=== PATIENT | male | born 1960 | race Caucasian/White ===

== ENCOUNTER 2018-08-24 03:59 | Emergency (ER) | payer MEDICAID ==
[~2018-08-24] VITALS: Ht 182.9 cm; Wt 147.7 kg
[~2018-08-24 03:59] MED LIST: AMLO5TAB PO; HYDR12.522 PO; LISI-222 PO
[2018-08-24] MEDS ORDERED: ondansetron/PF 4mg/2ml inj IV ONE (04:20)
[2018-08-24] MEDS ORDERED: morphine 4 MG/ML inj SYRINge IV ONE ×2 (04:25→05:05)
[2018-08-24 05:07] LABS: BASOPHILS # (AUTO) 0.1 X10'3 (0-0.2); BASOPHILS % (AUTO) 0.6 % (0-1); EOSINOPHILS # (AUTO) 0.2 X10'3 (0-0.9); EOSINOPHILS % (AUTO) 1.9 % (0-6); HEMATOCRIT 41.3 % (42.0-52.0); HEMOGLOBIN 14.3 g/dl (14.0-17.9); LYMPHOCYTES # (AUTO) 1.8 X10'3 (1.1-4.8); LYMPHOCYTES % (AUTO) 16.9 % (21-51); MEAN CORPUSCULAR HEMOGLOBIN 28.9 PG (27.0-31.0); MEAN CORPUSCULAR HGB CONC 34.7 g/dL (33.0-36.5); MEAN CORPUSCULAR VOLUME 83.4 FL (78-98); MEAN PLATELET VOLUME 7.8 FL (7.4-10.4); MONOCYTES # (AUTO) 0.5 X10'3 (0-0.9); MONOCYTES % (AUTO) 4.7 % (2-12); NEUTROPHILS % (AUTO) 75.9 % (42-75); PLATELET COUNT 247 X10'3 (140-440); RED BLOOD COUNT 4.96 X10'6 (4.70-6.10); RED CELL DISTRIBUTION WIDTH 14.5 % (11.5-14.5); WHITE BLOOD COUNT 10.6 X10'3 (4.5-11.0)
[2018-08-24] MEDS ORDERED: labetalol 20mg/4ml (5mg/ml) syringe IV ONE (05:10)
[2018-08-24 05:20] LABS: ALANINE AMINOTRANSFERASE 41 U/L (12-78); ALBUMIN 3.3 G/DL (3.4-5.0); ALBUMIN/GLOBULIN RATIO 0.8 (1.1-1.5); ALKALINE PHOSPHATASE 144 IU/L (46-116); ANION GAP 11 (8-16); ASPARTATE AMINO TRANSFERASE 27 U/L (10-37); BILIRUBIN,TOTAL 0.4 MG/DL (0.1-1.0); BLOOD UREA NITROGEN 20 MG/DL (7-18); BUN/CREATININE RATIO 14.6 (5.4-32.0); CALCIUM 8.8 MG/DL (8.5-10.1); CHLORIDE 104 MMOL/L (99-107); CREATININE 1.37 MG/DL (0.60-1.10); GLUCOSE 136 MG/DL (70-104); POTASSIUM 4.1 MMOL/L (3.5-5.1); SODIUM 141 MMOL/L (135-145); TOTAL CARBON DIOXIDE 26.2 MMOL/L (24-32); TOTAL PROTEIN 7.4 G/DL (6.4-8.2); eGFR 54 ML/MIN
[2018-08-24 05:24] LABS: LIPASE 141 U/L (73-393); TROPONIN I < 0.04 NG/ML (0.0-0.05)
--- NOTE | 2018-08-24 06:58 | NUR ---
ASSSUMED PT CARE, PT HYPERTENSIVE MD AWARE ACCORDING TO NIGHT ZHENG PINEDA. PT SNORING FOR NOW WILL TRY TO OBTAIN URINE SAMPLE
[2018-08-24 07:19] LABS: CLARITY,URINE CLEAR (Clear); COLOR,URINE YELLOW (Yellow); GLUCOSE, URINE NEGATIVE (Neg); KETONES,URINE NEGATIVE (Neg); LEUKOCYTE ESTERASE ,URINE NEGATIVE (Neg); NITRITES, URINE NEGATIVE (Neg); OCCULT BLOOD,URINE TRACE-INTACT (Neg); PH,URINE 6.5 (4.8-8.0); PROTEIN,URINE NEGATIVE (Neg); UROBILINOGEN,URINE 0.2 E.U/dL (0.2-1.0)
[2018-08-24] MEDS ORDERED: ONDA4TAB6 PO (07:19)
[2018-08-24] MEDS ORDERED: HYDR-4353 PO (07:21)
[2018-08-24] MEDS ORDERED: ondansetron 4mg rapidly disintigrating tab PO ONE (07:25)
[2018-08-24] MEDS ORDERED: HYDROcodone/acetaminophen 10/325mg tab PO ONE (07:25)
[2018-08-24 07:31] LABS: UA COLLECTION TYPE CLN CATCH MIDSTREAM
[2018-08-24 07:34] LABS: BACTERIA,URINE NONE SEEN /HPF (Neg); RBC,URINE 0-2 /HPF (0-2); SQUAMOUS EPITHELIAL CELL,UR FEW /LPF (FEW); WBC,URINE 0-4 /HPF (0-4)
[2018-08-24 07:41] VITALS: BP 206/112
== END 2018-08-24 09:07 | disposition home or self-care (01) ==
LOC: ER 03:59
DX: S30.1XXA Contusion of abdominal wall, initial encounter (principal); S36.62XA Contusion of rectum, initial encounter; G43.909 Migraine, unspecified, not intractable, without status migrainosus; I10 Essential (primary) hypertension; J44.9 Chronic obstructive pulmonary disease, unspecified; M19.90 Unspecified osteoarthritis, unspecified site; F12.90 Cannabis use, unspecified, uncomplicated; F15.90 Other stimulant use, unspecified, uncomplicated; Z56.0 Unemployment, unspecified; Z88.6 Allergy status to analgesic agent; Z88.1 Allergy status to other antibiotic agents; Z91.018 Allergy to other foods; X58.XXXA Exposure to other specified factors, initial encounter; Y93.89 Activity, other specified; Y92.89 Other specified places as the place of occurrence of the external cause; Y99.8 Other external cause status
CPT/HCPCS: 36415; 71045; 74176; 80053; 81001; 83605; 83690; 84484; 85025; 93005; 96374; 96375; 96376; 99284; J2270; J2405; J3490

== ENCOUNTER 2019-01-25 10:39 | Emergency (ER) | payer MEDICAID ==
[~2019-01-25] VITALS: Ht 185.4 cm; Wt 140.0 kg
[~2019-01-25 10:39] MED LIST changes: +ONDA4TAB6 PO
[2019-01-25] MEDS ORDERED: morphine 10mg/ml inj. IV ONE (12:15)
--- NOTE | 2019-01-25 12:45 | NUR ---
Pt refused knee immobilizer
[2019-01-25 13:14] LABS: ALANINE AMINOTRANSFERASE 32 U/L (12-78); ALBUMIN 3.2 G/DL (3.4-5.0); ALBUMIN/GLOBULIN RATIO 0.7 (1.1-1.5); ALKALINE PHOSPHATASE 150 IU/L (46-116); ANION GAP 7 (8-16); ASPARTATE AMINO TRANSFERASE 25 U/L (10-37); BILIRUBIN,TOTAL 0.7 MG/DL (0.1-1.0); BLOOD UREA NITROGEN 17 MG/DL (7-18); CALCIUM 9.2 MG/DL (8.5-10.1); CHLORIDE 103 MMOL/L (99-107); CREATININE 1.13 MG/DL (0.60-1.10); GLUCOSE 115 MG/DL (70-104); POTASSIUM 3.9 MMOL/L (3.5-5.1); SODIUM 137 MMOL/L (135-145); TOTAL CARBON DIOXIDE 26.8 MMOL/L (24-32); TOTAL PROTEIN 7.6 G/DL (6.4-8.2); eGFR 67 ML/MIN
--- NOTE | 2019-01-25 13:15 | NUR ---
Uma sommer in ED - 01/25/19 at 1316 by EVANGELIST attempted to GIVE PAIN MED , IV SITE TO RIGHT WRIST NOT PATENT. D/C INTACT
--- NOTE | 2019-01-25 13:17 | NUR ---
ATTEMPTED to GIVE PAIN MED , IV SITE TO RIGHT WRIST NOT PATENT. D/C INTACT. PT TOLERATED WELL. WILL RESTART
[2019-01-25 13:28] LABS: BASOPHILS # (AUTO) 0.1 X10'3 (0-0.2); BASOPHILS % (AUTO) 0.5 % (0-1); EOSINOPHILS % (AUTO) 0.2 % (0-6); HEMATOCRIT 42.4 % (42.0-52.0); HEMOGLOBIN 14.2 g/dl (14.0-17.9); LYMPHOCYTES # (AUTO) 1.2 X10'3 (1.1-4.8); LYMPHOCYTES % (AUTO) 8.9 % (21-51); MEAN CORPUSCULAR HEMOGLOBIN 27.9 PG (27.0-31.0); MEAN CORPUSCULAR HGB CONC 33.4 g/dL (33.0-36.5); MEAN CORPUSCULAR VOLUME 83.4 FL (78-98); MEAN PLATELET VOLUME 7.2 FL (7.4-10.4); MONOCYTES # (AUTO) 0.8 X10'3 (0-0.9); MONOCYTES % (AUTO) 5.9 % (2-12); NEUTROPHILS # (AUTO) 11.1 X10'3 (1.8-7.7); NEUTROPHILS % (AUTO) 84.5 % (42-75); PLATELET COUNT 222 X10'3 (140-440); RED BLOOD COUNT 5.08 X10'6 (4.70-6.10); RED CELL DISTRIBUTION WIDTH 15.3 % (11.5-14.5); WHITE BLOOD COUNT 13.2 X10'3 (4.5-11.0)
[2019-01-25] MEDS ORDERED: HYDR-3965 PO (14:34)
[2019-01-25 14:45] VITALS: BP 185/110
== END 2019-01-25 14:50 | disposition home or self-care (01) ==
LOC: ER 10:39
DX: M25.562 Pain in left knee (principal); G43.909 Migraine, unspecified, not intractable, without status migrainosus; I10 Essential (primary) hypertension; J44.9 Chronic obstructive pulmonary disease, unspecified; M19.90 Unspecified osteoarthritis, unspecified site; F12.90 Cannabis use, unspecified, uncomplicated; F15.90 Other stimulant use, unspecified, uncomplicated; Z88.1 Allergy status to other antibiotic agents; Z88.6 Allergy status to analgesic agent; Z79.899 Other long term (current) drug therapy; Z87.19 Personal history of other diseases of the digestive system; Z90.49 Acquired absence of other specified parts of digestive tract; Z96.652 Presence of left artificial knee joint; Z91.018 Allergy to other foods; Z98.890 Other specified postprocedural states; Z56.0 Unemployment, unspecified; W18.39XA Other fall on same level, initial encounter; Y93.89 Activity, other specified; Y92.89 Other specified places as the place of occurrence of the external cause; Y99.8 Other external cause status
CPT/HCPCS: 36415; 73564; 80053; 85025; 85651; 96374; 99284; J2270

== ENCOUNTER 2019-03-16 12:11 | Inpatient (IN) | payer MEDICAID ==
[~2019-03-16] VITALS: Ht 182.9 cm; Wt 136.8 kg
[2019-03-16] MEDS ORDERED: ketorolac trometh. 30mg/ml inj. IV ONE (12:50)
[2019-03-16] MEDS ORDERED: morphine 4 MG/ML inj SYRINge IV ONE (12:50)
[2019-03-16] MEDS ORDERED: normal saline 1000ML IV soln IV ONE (12:50)
[2019-03-16] MEDS ORDERED: proCHLORperazine 10 MG/2 ml inj IV ONE (12:50)
[2019-03-16] MEDS ORDERED: vancomycin/NS 1 GM ADD-VANTAGE 250 ML IV ONE (12:50)
[2019-03-16 12:55] LABS: BASOPHILS # (AUTO) 0.1 X10'3 (0-0.2); BASOPHILS % (AUTO) 0.4 % (0-1); EOSINOPHILS % (AUTO) 0 % (0-6); HEMATOCRIT 42.4 % (42.0-52.0); HEMOGLOBIN 14.5 g/dl (14.0-17.9); LYMPHOCYTES # (AUTO) 1.8 X10'3 (1.1-4.8); LYMPHOCYTES % (AUTO) 6.7 % (21-51); MEAN CORPUSCULAR HEMOGLOBIN 28.5 PG (27.0-31.0); MEAN CORPUSCULAR HGB CONC 34.1 g/dL (33.0-36.5); MEAN CORPUSCULAR VOLUME 83.6 FL (78-98); MEAN PLATELET VOLUME 7.7 FL (7.4-10.4); MONOCYTES # (AUTO) 1.1 X10'3 (0-0.9); MONOCYTES % (AUTO) 4.3 % (2-12); NEUTROPHILS # (AUTO) 23.3 X10'3 (1.8-7.7); NEUTROPHILS % (AUTO) 88.6 % (42-75); PLATELET COUNT 217 X10'3 (140-440); RED BLOOD COUNT 5.07 X10'6 (4.70-6.10); RED CELL DISTRIBUTION WIDTH 15.3 % (11.5-14.5)
[2019-03-16 12:57] LABS: WHITE BLOOD COUNT 26.3 X10'3 (4.5-11.0)
[2019-03-16 13:10] LABS: ALANINE AMINOTRANSFERASE 27 U/L (12-78); ALBUMIN 3.1 G/DL (3.4-5.0); ALBUMIN/GLOBULIN RATIO 0.7 (1.1-1.5); ALKALINE PHOSPHATASE 115 IU/L (46-116); ANION GAP 12 (8-16); ASPARTATE AMINO TRANSFERASE 18 U/L (10-37); BILIRUBIN,TOTAL 1.1 MG/DL (0.1-1.0); BLOOD UREA NITROGEN 19 MG/DL (7-18); BUN/CREATININE RATIO 11.7 (5.4-32.0); CALCIUM 8.5 MG/DL (8.5-10.1); CHLORIDE 101 MMOL/L (99-107); CREATININE 1.62 MG/DL (0.60-1.10); ETHANOL < 0.010 GM/DL (0.0-0.010); GLUCOSE 173 MG/DL (70-104); MAGNESIUM 1.4 MG/DL (1.5-2.4); POTASSIUM 3.6 MMOL/L (3.5-5.1); SODIUM 135 MMOL/L (135-145); TOTAL CARBON DIOXIDE 22.1 MMOL/L (24-32); TOTAL PROTEIN 7.5 G/DL (6.4-8.2); eGFR 44 ML/MIN
[2019-03-16 13:21] LABS: PLATELET ESTIMATE NORMAL; TOTAL CELLS COUNTED 100
[2019-03-16 13:36] LABS: PARTIAL THROMBOPLASTIN TIME 32 SECONDS (22-32)
[2019-03-16] MEDS ORDERED: magnesium 2GM in 50ml NS 50 ML IV ONE (13:55)
[2019-03-16 14:05] LABS: CREATINE KINASE 74 U/L (39-308)
[2019-03-16] MEDS ORDERED: LOSA25TA41 PO (14:38)
[2019-03-16] MEDS ORDERED: LISI-600 PO (14:38)
[2019-03-16] MEDS ORDERED: METF-438 PO (14:38)
[2019-03-16] MEDS ORDERED: GABA-532 PO (14:38)
[2019-03-16] MEDS ORDERED: FURO-150 PO (14:39)
[2019-03-16] MEDS ORDERED: POTA8CAP20 PO (14:39)
[2019-03-16] MEDS ORDERED: cefepime 1GM/NS ADD-VANTAGE 100 ML IV ONE (14:45)
[2019-03-16] MEDS ORDERED: magnesium hydroxide 30ml (MOM) UD suspension PO PRN (14:50)
[2019-03-16] MEDS ORDERED: magnesium 4gm in 100ml NS 100 ML IV PRN (14:50)
[2019-03-16] MEDS ORDERED: HYDROcodone/acetaminophen 10/325mg tab PO PRN (14:50)
[2019-03-16] MEDS ORDERED: diphenhydrAMINE 25mg capsule PO PRN (14:50)
[2019-03-16] MEDS ORDERED: magnesium 2GM in 50ml NS 50 ML IV PRN (14:50)
[2019-03-16] MEDS ORDERED: acetaminophen 325mg tablet PO PRN (14:50)
[2019-03-16] MEDS ORDERED: ondansetron/PF 4mg/2ml inj IV PRN (14:50)
[2019-03-16] MEDS ORDERED: mag hydrox/Alum hydrox/simeth 30ml oral suspension PO PRN (14:50)
[2019-03-16] MEDS ORDERED: HYDROcodone/acetaminophen 5mg/325mg tablet PO PRN (14:50)
[2019-03-16] MEDS ORDERED: glucagon, human recombinant 1mg kit SUBCUT PRN (14:50)
[2019-03-16] MEDS ORDERED: dextrose 50%-water 50ml dispensing syringe IV PRN ×2 (14:50)
[2019-03-16] MEDS ORDERED: dextrose ORAL solution 15 GM/59 ML bottle PO PRN ×2 (14:50)
[2019-03-16] MEDS ORDERED: acetaminophen 650mg rectal suppository RC PRN (14:50)
[2019-03-16] MEDS ORDERED: MESSAGE TO PHARMACY PO ONE (14:50)
[2019-03-16] MEDS: K and/or MAG REPLACEMENT MC SCH (14:50)
[2019-03-16] MEDS ORDERED: potassium CL 10mEq/100ml bag 100 ML IV PRN ×2 (14:50)
[2019-03-16] MEDS ORDERED: magnesium Cl slow-release 64mg tablet PO PRN (14:50)
[2019-03-16] MEDS ORDERED: potassium Cl 20 mEq SR tablet PO PRN (14:50)
[2019-03-16] MEDS ORDERED: metoclopramide 5 mg/ml inj IV PRN (14:50)
[2019-03-16] MEDS ORDERED: cefepime 1GM in D5W 50mL 50 ML IV ONE (14:55)
[2019-03-16] MEDS ORDERED: cefepime 1GM in D5W 50mL 50 ML IV SCH (14:57)
[2019-03-16] MEDS: cefepime 1GM/NS ADD-VANTAGE 50 ML IV SCH ×2 (15:29→23:33)
[2019-03-16 15:30] LABS: CLARITY,URINE SLIGHTLY CLOUDY (Clear); COLOR,URINE YELLOW (Yellow); GLUCOSE, URINE 500 mg/dl (Neg); KETONES,URINE NEGATIVE (Neg); LEUKOCYTE ESTERASE ,URINE NEGATIVE (Neg); NITRITES, URINE NEGATIVE (Neg); OCCULT BLOOD,URINE SMALL (Neg); PROTEIN,URINE 100 mg/dl (Neg); UROBILINOGEN,URINE 0.2 E.U/dL (0.2-1.0)
[2019-03-16 15:35] LABS: HEMOGLOBIN A1C 6.2 % (4.5-6.2)
[2019-03-16 15:37] LABS: UA COLLECTION TYPE STRAIGHT CATH
[2019-03-16 15:38] LABS: FINE GRANULAR CAST 0-3 /LPF (NEGATIVE); MUCUS STRANDS FEW /LPF (Neg); SQUAMOUS EPITHELIAL CELL,UR FEW /LPF (FEW)
[2019-03-16 15:39] LABS: BACTERIA,URINE 1+ /HPF (Neg); WBC,URINE 0-4 /HPF (0-4)
--- NOTE | 2019-03-16 15:39 | NUR ---
I have received patient report from Wilma CALZADA
[2019-03-16 15:48] LABS: URINE AMPHETAMINE SCREEN POSITIVE (Neg); URINE BARBITUATE SCREEN NEGATIVE (Neg); URINE BENZODIAZEPINES SCREEN NEGATIVE (Neg); URINE CANNABINOID SCREEN POSITIVE (Neg); URINE COCAINE SCREEN NEGATIVE (Neg); URINE METHADONE SCREEN NEGATIVE (Neg); URINE OPIATE SCREEN POSITIVE (Neg); URINE PHENCYCLIDINE SCREEN NEGATIVE (Neg)
[2019-03-16 16:25] VITALS: BP 160/75
[2019-03-16] MEDS: normal saline 1000ml 1,000 ML IV SCH (16:27)
[2019-03-16 18:00] VITALS: BP 170/92
--- NOTE | 2019-03-16 18:15 | NUR ---
Patient in room [facility] 4008. I have received report from ZHENG Gonzales and had the opportunity to ask questions and assume patient care.
--- NOTE | 2019-03-16 18:20 | NUR ---
Patient report given to Tammie CALZADA
--- NOTE | 2019-03-16 18:21 | NUR ---
Dr. Casas aware of BP 170/90
[2019-03-16] MEDS: heparin, porcine 5000 units/ml vial SQ SCH (20:29)
[2019-03-16] MEDS: gabapentin 300mg capsule PO SCH (20:30)
[2019-03-16] MEDS: insulin glargine (Lantus) pen - multi-dose SQ SCH (21:00)
[2019-03-16 22:00] VITALS: BP 182/96
[2019-03-16] MEDS: acetaminophen 325mg tablet PO PRN (23:29)
[2019-03-16] MEDS ORDERED: LORazepam 2 mg/ml vial ONE (23:58)
[2019-03-17] VITALS (8 sets, daily range): BP systolic 130–179; BP diastolic 75–90
[2019-03-17] MEDS: hydrALAZINE 20mg/ml inj. IV PRN ×3 (00:45→18:34)
[2019-03-17] MEDS: normal saline 1000ml 1,000 ML IV SCH ×3 (00:47→15:56)
--- NOTE | 2019-03-17 00:52 | NUR ---
dr. Schultz has been notified regarding pt. elevated BP 182/96.He gave me a order for Hydralazine 10 mg PRN q 4 for BP > 160 and Ativan 1 mg Q4 PRN.We will continue with pt. care.
[2019-03-17] MEDS ORDERED: VANCOMYCIN LEVEL IV ONE (03:30)
--- NOTE | 2019-03-17 06:31 | NUR ---
Problems reprioritized. Patient report given, questions answered & plan of care reviewed with ZHENG Jasmine.
[2019-03-17 07:02] LABS: BASOPHILS # (AUTO) 0.1 X10'3 (0-0.2); BASOPHILS % (AUTO) 0.3 % (0-1); EOSINOPHILS % (AUTO) 0.1 % (0-6); HEMATOCRIT 38.6 % (42.0-52.0); HEMOGLOBIN 12.9 g/dl (14.0-17.9); LYMPHOCYTES # (AUTO) 1.6 X10'3 (1.1-4.8); LYMPHOCYTES % (AUTO) 7.5 % (21-51); MEAN CORPUSCULAR HEMOGLOBIN 28.3 PG (27.0-31.0); MEAN CORPUSCULAR HGB CONC 33.4 g/dL (33.0-36.5); MEAN CORPUSCULAR VOLUME 84.7 FL (78-98); MEAN PLATELET VOLUME 7.8 FL (7.4-10.4); MONOCYTES # (AUTO) 0.9 X10'3 (0-0.9); MONOCYTES % (AUTO) 4.2 % (2-12); NEUTROPHILS # (AUTO) 18.3 X10'3 (1.8-7.7); NEUTROPHILS % (AUTO) 87.9 % (42-75); PLATELET COUNT 174 X10'3 (140-440); RED BLOOD COUNT 4.56 X10'6 (4.70-6.10); RED CELL DISTRIBUTION WIDTH 15.2 % (11.5-14.5); WHITE BLOOD COUNT 20.8 X10'3 (4.5-11.0)
[2019-03-17 07:20] LABS: ALANINE AMINOTRANSFERASE 24 U/L (12-78); ALBUMIN 2.5 G/DL (3.4-5.0); ALBUMIN/GLOBULIN RATIO 0.6 (1.1-1.5); ALKALINE PHOSPHATASE 100 IU/L (46-116); ANION GAP 9 (8-16); ASPARTATE AMINO TRANSFERASE 19 U/L (10-37); BLOOD UREA NITROGEN 15 MG/DL (7-18); BUN/CREATININE RATIO 11.6 (5.4-32.0); CHLORIDE 106 MMOL/L (99-107); CHOLESTEROL 119 MG/DL (0-200); CREATININE 1.29 MG/DL (0.60-1.10); GLUCOSE 132 MG/DL (70-104); LDL CHOLESTEROL 62 MG/DL (50-100); PHOSPHORUS 1.6 MG/DL (2.3-4.5); POTASSIUM 3.5 MMOL/L (3.5-5.1); SODIUM 138 MMOL/L (135-145); TOTAL CARBON DIOXIDE 22.7 MMOL/L (24-32); TOTAL PROTEIN 6.7 G/DL (6.4-8.2); TRIGLYCERIDES 76 MG/DL (20-135); eGFR 58 ML/MIN
[2019-03-17] MEDS: cefepime 1GM/NS ADD-VANTAGE 50 ML IV SCH (07:29)
[2019-03-17] MEDS: losartan 25mg tablet PO SCH (07:29)
[2019-03-17] MEDS: gabapentin 300mg capsule PO SCH ×3 (07:30→19:34)
[2019-03-17] MEDS: lisinopril 20mg tablet PO SCH (07:30)
[2019-03-17] MEDS: furosemide 40mg tablet PO SCH (07:30)
[2019-03-17] MEDS: heparin, porcine 5000 units/ml vial SQ SCH ×2 (07:31→19:36)
[2019-03-17] MEDS: K and/or MAG REPLACEMENT MC SCH (08:00)
[2019-03-17 08:21] LABS: CHOL/HDL RATIO 2.8 (0.00-4.99); HDL CHOLESTEROL 42 MG/DL (35-60)
--- NOTE | 2019-03-17 09:27 | NUR ---
DM consult: Patient's A1c is 6.2; DM ed not warranted at this time. Will continue to follow. Addendum: 03/17/19 at [address] Amended: Links added.
[2019-03-17] MEDS ORDERED: CLINDAMYCIN/D5W 900mg/50ml 50 ML IV SCH (11:25)
[2019-03-17] MEDS ORDERED: cefazolin/dext.iso 2gm/100ml 100 ML IV SCH (11:25)
[2019-03-17] MEDS: acetaminophen 325mg tablet PO PRN ×2 (13:03→19:34)
[2019-03-17] MEDS ORDERED: iohexol 300mg/ml 100ml inj. ONE (14:45)
[2019-03-17] MEDS: CLINDAMYCIN/D5W 900mg/50ml 50 ML IV SCH (15:51)
[2019-03-17] MEDS ORDERED: cefepime 1GM/NS ADD-VANTAGE 100 ML IV SCH (16:00)
--- NOTE | 2019-03-17 18:52 | NUR ---
Patient in room [facility]TH[facility] 4008. I have received report from ZHENG Jasmine and had the opportunity to ask questions and assume patient care.
[2019-03-17] MEDS: LORazepam 2 mg/ml vial IV PRN (19:27)
[2019-03-17] MEDS: lactobacillus rhamnosus 10,000 MMU CELLS/CAPSULE PO SCH (19:36)
[2019-03-17] MEDS: insulin glargine (Lantus) pen - multi-dose SQ SCH (21:00)
[2019-03-17] MEDS: cefazolin/dext.iso 2gm/100ml 100 ML IV SCH (21:10)
[2019-03-18] MEDS: CLINDAMYCIN/D5W 900mg/50ml 50 ML IV SCH ×5 (00:07→23:31)
[2019-03-18] MEDS: normal saline 1000ml 1,000 ML IV SCH ×2 (03:48→17:32)
[2019-03-18] MEDS: LORazepam 2 mg/ml vial IV PRN (05:05)
[2019-03-18] MEDS: hydrALAZINE 20mg/ml inj. IV PRN ×2 (05:06→17:42)
[2019-03-18 06:00] VITALS: BP 204/89
[2019-03-18] MEDS: cefazolin/dext.iso 2gm/100ml 100 ML IV SCH ×3 (06:01→21:00)
[2019-03-18] MEDS: acetaminophen 325mg tablet PO PRN ×2 (06:29→13:06)
[2019-03-18] MEDS: losartan 25mg tablet PO SCH (06:29)
[2019-03-18] MEDS: furosemide 40mg tablet PO SCH (06:29)
[2019-03-18] MEDS: lisinopril 20mg tablet PO SCH ×2 (06:29→19:35)
[2019-03-18 06:45] VITALS: BP 180/91
--- NOTE | 2019-03-18 06:55 | NUR ---
Problems reprioritized. Patient report given, questions answered & plan of care reviewed with ZHENG Jasmine.
[2019-03-18 07:08] LABS: BASOPHILS # (AUTO) 0.1 X10'3 (0-0.2); BASOPHILS % (AUTO) 0.3 % (0-1); EOSINOPHILS % (AUTO) 0.1 % (0-6); HEMATOCRIT 39.4 % (42.0-52.0); HEMOGLOBIN 13.3 g/dl (14.0-17.9); LYMPHOCYTES % (AUTO) 5.2 % (21-51); MEAN CORPUSCULAR HGB CONC 33.7 g/dL (33.0-36.5); MEAN CORPUSCULAR VOLUME 83.1 FL (78-98); MEAN PLATELET VOLUME 7.2 FL (7.4-10.4); MONOCYTES % (AUTO) 5.3 % (2-12); NEUTROPHILS # (AUTO) 17.5 X10'3 (1.8-7.7); NEUTROPHILS % (AUTO) 89.1 % (42-75); PLATELET COUNT 180 X10'3 (140-440); RED BLOOD COUNT 4.74 X10'6 (4.70-6.10); RED CELL DISTRIBUTION WIDTH 14.7 % (11.5-14.5); WHITE BLOOD COUNT 19.7 X10'3 (4.5-11.0)
[2019-03-18 07:38] LABS: ANISOCYTOSIS 1+; MICROCYTOSIS 1+; PLATELET ESTIMATE NORMAL; TOTAL CELLS COUNTED 100
[2019-03-18 07:45] LABS: ALANINE AMINOTRANSFERASE 21 U/L (12-78); ALBUMIN 2.4 G/DL (3.4-5.0); ALBUMIN/GLOBULIN RATIO 0.5 (1.1-1.5); ALKALINE PHOSPHATASE 105 IU/L (46-116); ANION GAP 12 (8-16); ASPARTATE AMINO TRANSFERASE 19 U/L (10-37); BLOOD UREA NITROGEN 11 MG/DL (7-18); BUN/CREATININE RATIO 9.7 (5.4-32.0); CALCIUM 8.2 MG/DL (8.5-10.1); CHLORIDE 104 MMOL/L (99-107); CREATININE 1.13 MG/DL (0.60-1.10); GLUCOSE 177 MG/DL (70-104); MAGNESIUM 1.7 MG/DL (1.5-2.4); PHOSPHORUS 1.3 MG/DL (2.3-4.5); POTASSIUM 3.2 MMOL/L (3.5-5.1); SODIUM 138 MMOL/L (135-145); TOTAL CARBON DIOXIDE 22.1 MMOL/L (24-32); TOTAL PROTEIN 7.1 G/DL (6.4-8.2); eGFR 67 ML/MIN
[2019-03-18] MEDS: K and/or MAG REPLACEMENT MC SCH (08:00)
[2019-03-18] MEDS: lactobacillus rhamnosus 10,000 MMU CELLS/CAPSULE PO SCH ×2 (09:07→19:34)
[2019-03-18] MEDS: gabapentin 300mg capsule PO SCH ×3 (09:07→19:34)
[2019-03-18] MEDS: heparin, porcine 5000 units/ml vial SQ SCH ×2 (09:09→19:35)
[2019-03-18] MEDS: potassium Cl 20 mEq SR tablet PO PRN ×3 (09:09→16:34)
[2019-03-18 09:10] VITALS: BP 165/88
[2019-03-18 14:26] VITALS: BP 165/83
[2019-03-18] MEDS ORDERED: VANCOMYCIN LEVEL IV ONE (15:30)
[2019-03-18] MEDS: ibuprofen 200mg tablet PO PRN (17:41)
--- NOTE | 2019-03-18 17:48 | NUR ---
pt BP 202/99, gave hydralazine as ordered. Md aware of pt's BP fluctuating into the 200/100's the last 12 hrs
[2019-03-18 18:00] VITALS: BP 202/99
--- NOTE | 2019-03-18 18:15 | NUR ---
Patient in room [facility]TH[facility] 4008. I have received report from ZHENG Jasmine and had the opportunity to ask questions and assume patient care.
[2019-03-18] MEDS: insulin Lispro (HumaLOG) vial - multi-dose SQ SCH (19:39)
[2019-03-18] MEDS: insulin glargine (Lantus) pen - multi-dose SQ SCH (21:07)
[2019-03-18 22:00] VITALS: BP 169/79
[2019-03-19] MEDS: normal saline 1000ml 1,000 ML IV SCH ×3 (02:47→22:47)
[2019-03-19] MEDS: ibuprofen 200mg tablet PO PRN (04:49)
[2019-03-19] MEDS: hydrALAZINE 20mg/ml inj. IV PRN (04:50)
[2019-03-19] MEDS: cefazolin/dext.iso 2gm/100ml 100 ML IV SCH ×3 (05:55→22:37)
[2019-03-19 06:00] VITALS: BP 186/87
--- NOTE | 2019-03-19 06:05 | NUR ---
Problems reprioritized. Patient report given, questions answered & plan of care reviewed with ZHENG De Leon.
--- NOTE | 2019-03-19 06:06 | NUR ---
received report from rachael fragoso
[2019-03-19 07:21] LABS: BASOPHILS # (AUTO) 0.1 X10'3 (0-0.2); BASOPHILS % (AUTO) 0.4 % (0-1); EOSINOPHILS # (AUTO) 0.1 X10'3 (0-0.9); HEMATOCRIT 39.5 % (42.0-52.0); HEMOGLOBIN 13.6 g/dl (14.0-17.9); LYMPHOCYTES % (AUTO) 7.9 % (21-51); MEAN CORPUSCULAR HEMOGLOBIN 28.6 PG (27.0-31.0); MEAN CORPUSCULAR HGB CONC 34.3 g/dL (33.0-36.5); MEAN CORPUSCULAR VOLUME 83.4 FL (78-98); MEAN PLATELET VOLUME 7.8 FL (7.4-10.4); MONOCYTES # (AUTO) 0.8 X10'3 (0-0.9); NEUTROPHILS # (AUTO) 10.8 X10'3 (1.8-7.7); NEUTROPHILS % (AUTO) 84.7 % (42-75); PLATELET COUNT 190 X10'3 (140-440); RED BLOOD COUNT 4.74 X10'6 (4.70-6.10); WHITE BLOOD COUNT 12.8 X10'3 (4.5-11.0)
[2019-03-19 07:35] LABS: ALANINE AMINOTRANSFERASE 20 U/L (12-78); ALBUMIN 2.3 G/DL (3.4-5.0); ALBUMIN/GLOBULIN RATIO 0.5 (1.1-1.5); ALKALINE PHOSPHATASE 111 IU/L (46-116); ANION GAP 11 (8-16); ASPARTATE AMINO TRANSFERASE 20 U/L (10-37); BILIRUBIN,TOTAL 0.8 MG/DL (0.1-1.0); BLOOD UREA NITROGEN 11 MG/DL (7-18); CALCIUM 8.4 MG/DL (8.5-10.1); CHLORIDE 105 MMOL/L (99-107); GLUCOSE 171 MG/DL (70-104); MAGNESIUM 1.7 MG/DL (1.5-2.4); PHOSPHORUS 1.7 MG/DL (2.3-4.5); POTASSIUM 3.3 MMOL/L (3.5-5.1); SODIUM 140 MMOL/L (135-145); TOTAL CARBON DIOXIDE 24.1 MMOL/L (24-32); eGFR 69 ML/MIN
[2019-03-19 07:43] LABS: ANISOCYTOSIS 1+; PLATELET ESTIMATE NORMAL; TOTAL CELLS COUNTED 100
[2019-03-19] MEDS: K and/or MAG REPLACEMENT MC SCH (07:56)
[2019-03-19] MEDS: heparin, porcine 5000 units/ml vial SQ SCH ×2 (08:00→20:28)
[2019-03-19] MEDS: furosemide 40mg tablet PO SCH (08:11)
[2019-03-19] MEDS: lisinopril 20mg tablet PO SCH ×2 (08:11→20:28)
[2019-03-19] MEDS: gabapentin 300mg capsule PO SCH ×3 (08:12→20:30)
[2019-03-19] MEDS: potassium Cl 20 mEq SR tablet PO SCH (08:12)
[2019-03-19] MEDS: potassium Cl 20 mEq SR tablet PO PRN ×2 (08:12→13:30)
[2019-03-19] MEDS: lactobacillus rhamnosus 10,000 MMU CELLS/CAPSULE PO SCH ×2 (08:13→20:26)
[2019-03-19] MEDS: losartan 25mg tablet PO SCH (08:13)
[2019-03-19] MEDS: aspirin/acetaminophen/caffeine tablet PO PRN ×2 (08:15→18:16)
[2019-03-19] MEDS: CLINDAMYCIN/D5W 900mg/50ml 50 ML IV SCH ×2 (08:17→16:24)
[2019-03-19] MEDS: insulin Lispro (HumaLOG) vial - multi-dose SQ SCH ×2 (09:28→13:28)
[2019-03-19 10:00] VITALS: BP 105/40
--- NOTE | 2019-03-19 16:22 | NUR ---
pt does not want to utilize a warm compress, continue to educate and monitor
--- NOTE | 2019-03-19 18:34 | NUR ---
gave report to october,
[2019-03-19 19:00] VITALS: BP 220/109
[2019-03-19] MEDS: HYDROcodone/acetaminophen 5mg/325mg tablet PO PRN (20:29)
[2019-03-19] MEDS: insulin glargine (Lantus) pen - multi-dose SQ SCH (20:46)
[2019-03-19 22:00] VITALS: BP 187/95
[2019-03-20] MEDS: CLINDAMYCIN/D5W 900mg/50ml 50 ML IV SCH ×4 (00:15→23:19)
[2019-03-20 02:00] VITALS: BP 190/110
[2019-03-20] MEDS: HYDROcodone/acetaminophen 5mg/325mg tablet PO PRN ×6 (02:15→23:15)
[2019-03-20] MEDS: hydrALAZINE 20mg/ml inj. IV PRN ×3 (02:17→17:14)
[2019-03-20] MEDS ORDERED: VANCOMYCIN LEVEL IV ONE (03:30)
[2019-03-20] MEDS: cefazolin/dext.iso 2gm/100ml 100 ML IV SCH ×3 (05:20→21:02)
[2019-03-20] MEDS: normal saline 1000ml 1,000 ML IV SCH ×2 (05:21→18:47)
[2019-03-20 06:00] VITALS: BP 184/100
--- NOTE | 2019-03-20 06:11 | NUR ---
received report from oh, rn
[2019-03-20 06:40] LABS: BASOPHILS # (AUTO) 0.1 X10'3 (0-0.2); BASOPHILS % (AUTO) 0.7 % (0-1); EOSINOPHILS # (AUTO) 0.2 X10'3 (0-0.9); EOSINOPHILS % (AUTO) 1.7 % (0-6); HEMATOCRIT 38.4 % (42.0-52.0); LYMPHOCYTES # (AUTO) 2.1 X10'3 (1.1-4.8); LYMPHOCYTES % (AUTO) 18.6 % (21-51); MEAN CORPUSCULAR HEMOGLOBIN 28.1 PG (27.0-31.0); MEAN CORPUSCULAR HGB CONC 33.8 g/dL (33.0-36.5); MEAN CORPUSCULAR VOLUME 83.1 FL (78-98); MEAN PLATELET VOLUME 7.2 FL (7.4-10.4); MONOCYTES % (AUTO) 9.4 % (2-12); NEUTROPHILS # (AUTO) 7.7 X10'3 (1.8-7.7); NEUTROPHILS % (AUTO) 69.6 % (42-75); PLATELET COUNT 206 X10'3 (140-440); RED BLOOD COUNT 4.62 X10'6 (4.70-6.10); RED CELL DISTRIBUTION WIDTH 15.2 % (11.5-14.5)
[2019-03-20 07:10] LABS: ALANINE AMINOTRANSFERASE 25 U/L (12-78); ALBUMIN 2.2 G/DL (3.4-5.0); ALBUMIN/GLOBULIN RATIO 0.5 (1.1-1.5); ALKALINE PHOSPHATASE 116 IU/L (46-116); ANION GAP 11 (8-16); BILIRUBIN,TOTAL 0.6 MG/DL (0.1-1.0); BLOOD UREA NITROGEN 13 MG/DL (7-18); BUN/CREATININE RATIO 11.8 (5.4-32.0); CALCIUM 8.2 MG/DL (8.5-10.1); CHLORIDE 106 MMOL/L (99-107); GLUCOSE 147 MG/DL (70-104); MAGNESIUM 1.7 MG/DL (1.5-2.4); SODIUM 140 MMOL/L (135-145); TOTAL CARBON DIOXIDE 23.5 MMOL/L (24-32); TOTAL PROTEIN 6.7 G/DL (6.4-8.2); eGFR 69 ML/MIN
[2019-03-20 07:14] LABS: ASPARTATE AMINO TRANSFERASE 35 U/L (10-37); PHOSPHORUS 3.2 MG/DL (2.3-4.5); POTASSIUM 3.8 MMOL/L (3.5-5.1)
[2019-03-20] MEDS: furosemide 40mg tablet PO SCH (07:19)
[2019-03-20] MEDS: gabapentin 300mg capsule PO SCH ×3 (07:19→20:45)
[2019-03-20] MEDS: lactobacillus rhamnosus 10,000 MMU CELLS/CAPSULE PO SCH ×2 (07:19→20:46)
[2019-03-20] MEDS: potassium Cl 20 mEq SR tablet PO SCH (07:20)
[2019-03-20] MEDS: losartan 25mg tablet PO SCH (07:20)
[2019-03-20] MEDS: lisinopril 20mg tablet PO SCH ×2 (07:21→19:30)
[2019-03-20] MEDS: heparin, porcine 5000 units/ml vial SQ SCH ×2 (07:25→20:47)
[2019-03-20] MEDS: K and/or MAG REPLACEMENT MC SCH (07:28)
[2019-03-20 07:44] LABS: PLATELET ESTIMATE NORMAL; TOTAL CELLS COUNTED 100
[2019-03-20] MEDS: insulin Lispro (HumaLOG) vial - multi-dose SQ SCH ×2 (08:47→13:31)
[2019-03-20 10:00] VITALS: BP 159/85
--- NOTE | 2019-03-20 17:48 | NUR ---
gave report to october,
[2019-03-20 17:50] VITALS: BP 167/95
[2019-03-20 19:20] VITALS: BP 192/94
[2019-03-20] MEDS: metoprolol succinate 25mg (24-HOUR) SR. Tablet PO SCH (20:46)
[2019-03-20] MEDS: insulin glargine (Lantus) pen - multi-dose SQ SCH (21:01)
[2019-03-20 23:20] VITALS: BP 178/94
[2019-03-21 02:00] VITALS: BP 167/94
[2019-03-21] MEDS: HYDROcodone/acetaminophen 5mg/325mg tablet PO PRN ×3 (03:46→14:06)
[2019-03-21] MEDS: normal saline 1000ml 1,000 ML IV SCH (04:47)
[2019-03-21] MEDS: cefazolin/dext.iso 2gm/100ml 100 ML IV SCH (04:54)
[2019-03-21] MEDS: ibuprofen 200mg tablet PO PRN (04:54)
[2019-03-21 06:09] LABS: BASOPHILS # (AUTO) 0.1 X10'3 (0-0.2); BASOPHILS % (AUTO) 0.5 % (0-1); EOSINOPHILS # (AUTO) 0.2 X10'3 (0-0.9); EOSINOPHILS % (AUTO) 1.9 % (0-6); HEMATOCRIT 38.4 % (42.0-52.0); LYMPHOCYTES # (AUTO) 1.9 X10'3 (1.1-4.8); LYMPHOCYTES % (AUTO) 16.6 % (21-51); MEAN CORPUSCULAR HEMOGLOBIN 28.1 PG (27.0-31.0); MEAN CORPUSCULAR HGB CONC 33.9 g/dL (33.0-36.5); MONOCYTES # (AUTO) 1.1 X10'3 (0-0.9); MONOCYTES % (AUTO) 9.3 % (2-12); NEUTROPHILS # (AUTO) 8.3 X10'3 (1.8-7.7); NEUTROPHILS % (AUTO) 71.7 % (42-75); PLATELET COUNT 227 X10'3 (140-440); RED BLOOD COUNT 4.63 X10'6 (4.70-6.10); RED CELL DISTRIBUTION WIDTH 15.1 % (11.5-14.5); WHITE BLOOD COUNT 11.6 X10'3 (4.5-11.0)
[2019-03-21 06:27] LABS: ALANINE AMINOTRANSFERASE 23 U/L (12-78); ALBUMIN 2.3 G/DL (3.4-5.0); ALBUMIN/GLOBULIN RATIO 0.5 (1.1-1.5); ALKALINE PHOSPHATASE 111 IU/L (46-116); ANION GAP 9 (8-16); ASPARTATE AMINO TRANSFERASE 25 U/L (10-37); BILIRUBIN,TOTAL 0.4 MG/DL (0.1-1.0); BLOOD UREA NITROGEN 11 MG/DL (7-18); BUN/CREATININE RATIO 9.6 (5.4-32.0); CALCIUM 8.4 MG/DL (8.5-10.1); CHLORIDE 104 MMOL/L (99-107); CREATININE 1.14 MG/DL (0.60-1.10); GLUCOSE 179 MG/DL (70-104); MAGNESIUM 1.7 MG/DL (1.5-2.4); PHOSPHORUS 3.6 MG/DL (2.3-4.5); POTASSIUM 3.7 MMOL/L (3.5-5.1); SODIUM 139 MMOL/L (135-145); TOTAL CARBON DIOXIDE 26.2 MMOL/L (24-32); TOTAL PROTEIN 6.8 G/DL (6.4-8.2); eGFR 66 ML/MIN
--- NOTE | 2019-03-21 06:46 | NUR ---
Received report from Anabela RN
[2019-03-21 07:06] LABS: TOTAL CELLS COUNTED 100
[2019-03-21 07:07] LABS: LARGE PLATELETS FEW; PLATELET ESTIMATE NORMAL
[2019-03-21 07:23] VITALS: BP 182/101
[2019-03-21] MEDS: K and/or MAG REPLACEMENT MC SCH (08:00)
[2019-03-21] MEDS: gabapentin 300mg capsule PO SCH (08:42)
[2019-03-21] MEDS: lactobacillus rhamnosus 10,000 MMU CELLS/CAPSULE PO SCH (08:42)
[2019-03-21] MEDS: CLINDAMYCIN/D5W 900mg/50ml 50 ML IV SCH (08:42)
[2019-03-21] MEDS: losartan 25mg tablet PO SCH (08:42)
[2019-03-21] MEDS: furosemide 40mg tablet PO SCH (08:43)
[2019-03-21] MEDS: lisinopril 20mg tablet PO SCH (08:43)
[2019-03-21] MEDS: potassium Cl 20 mEq SR tablet PO SCH (08:43)
[2019-03-21] MEDS: metoprolol succinate 25mg (24-HOUR) SR. Tablet PO SCH (08:43)
[2019-03-21] MEDS: heparin, porcine 5000 units/ml vial SQ SCH (08:44)
[2019-03-21 10:00] VITALS: BP 174/98
[2019-03-21] MEDS: insulin Lispro (HumaLOG) vial - multi-dose SQ SCH (10:09)
[2019-03-21 11:47] VITALS: BP 164/90
[2019-03-21] MEDS ORDERED: LACT1CAP65 PO (13:26)
[2019-03-21] MEDS ORDERED: CEPH500C5 PO (13:26)
--- NOTE | 2019-03-21 15:14 | NUR ---
Patient was discharged iv and tele was removed from patient. patient was alert and oriented at time of discharge. patient was upset that he could not get a prescription home of pain Meds.
[2019-03-21] MEDS ORDERED: clindamycin-Cleocin 900mg/D5W 50 ML IV SCH (16:00)
== END 2019-03-21 14:21 | disposition home or self-care (01) | DRG 720 ==
LOC: ER 12:12 → EDBEDREQTM 15:18 → ORTHO 4S 16:33
PROVIDERS: ADMIT Family Medicine; ATTEND Internal Medicine
PROC: BQ2S1ZZ Computerized Tomography (CT Scan) of Left Lower Extremity using Low Osmolar Contrast (ICD-10-PCS; principal; 2019-03-17)
DX: A41.9 Sepsis, unspecified organism (principal); N17.9 Acute kidney failure, unspecified; E11.42 Type 2 diabetes mellitus with diabetic polyneuropathy; E83.42 Hypomagnesemia; E78.5 Hyperlipidemia, unspecified; F12.90 Cannabis use, unspecified, uncomplicated; F15.10 Other stimulant abuse, uncomplicated; G47.33 Obstructive sleep apnea (adult) (pediatric); I10 Essential (primary) hypertension; J44.9 Chronic obstructive pulmonary disease, unspecified; L03.116 Cellulitis of left lower limb; F17.200 Nicotine dependence, unspecified, uncomplicated; Z96.651 Presence of right artificial knee joint; F14.10 Cocaine abuse, uncomplicated; G43.909 Migraine, unspecified, not intractable, without status migrainosus; G89.29 Other chronic pain; K57.90 Diverticulosis of intestine, part unspecified, without perforation or abscess without bleeding; M19.90 Unspecified osteoarthritis, unspecified site; Z79.899 Other long term (current) drug therapy; Z88.1 Allergy status to other antibiotic agents; Z88.6 Allergy status to analgesic agent; Z79.84 Long term (current) use of oral hypoglycemic drugs; Z90.49 Acquired absence of other specified parts of digestive tract; Z56.0 Unemployment, unspecified; Z71.51 Drug abuse counseling and surveillance of drug abuser
CPT/HCPCS: 36415; 71045; 73701; 80053; 80061; 80202; 80305; 80320; 81001; 82308; 82550; 82948; 83036; 83605; 83735; 84100; 84145; 85025; 85610; 85730; 87040; 87081; 93971; 96365; 96375; 99291; G0378; J0360; J0692; J0780; J1644; J1815; J1885; J2060; J2270; J3370; J3475; J3490; J7030; Q0163; Q9967

== ENCOUNTER 2019-04-05 08:59 | Emergency (ER) | payer MEDICAID ==
[~2019-04-05] VITALS: Ht 177.8 cm; Wt 131.8 kg
[~2019-04-05 08:59] MED LIST changes: -AMLO5TAB PO; +FURO-150 PO; +GABA-532 PO; -HYDR12.522 PO; +LACT1CAP65 PO; -LISI-222 PO; +LISI-600 PO; +LOSA25TA41 PO; +METF-438 PO; -ONDA4TAB6 PO; +POTA8CAP20 PO
[2019-04-05] MEDS ORDERED: normal saline 1000ML IV soln IVB ONE (09:25)
[2019-04-05] MEDS ORDERED: ondansetron/PF 4mg/2ml inj IV ONE (09:25)
[2019-04-05] MEDS ORDERED: morphine 4 MG/ML inj SYRINge IV PRN (09:25)
[2019-04-05 10:16] LABS: BASOPHILS # (AUTO) 0.1 X10'3 (0-0.2); BASOPHILS % (AUTO) 1.1 % (0-1); EOSINOPHILS # (AUTO) 0.2 X10'3 (0-0.9); EOSINOPHILS % (AUTO) 2.2 % (0-6); HEMATOCRIT 41.4 % (42.0-52.0); LYMPHOCYTES # (AUTO) 2.3 X10'3 (1.1-4.8); MEAN CORPUSCULAR HEMOGLOBIN 28.1 PG (27.0-31.0); MEAN CORPUSCULAR HGB CONC 33.8 g/dL (33.0-36.5); MEAN CORPUSCULAR VOLUME 83.2 FL (78-98); MONOCYTES # (AUTO) 0.6 X10'3 (0-0.9); MONOCYTES % (AUTO) 7.9 % (2-12); NEUTROPHILS # (AUTO) 4.5 X10'3 (1.8-7.7); NEUTROPHILS % (AUTO) 58.8 % (42-75); PLATELET COUNT 317 X10'3 (140-440); RED BLOOD COUNT 4.98 X10'6 (4.70-6.10); RED CELL DISTRIBUTION WIDTH 14.9 % (11.5-14.5); WHITE BLOOD COUNT 7.7 X10'3 (4.5-11.0)
[2019-04-05 10:17] VITALS: BP 185/98
[2019-04-05 10:27] LABS: ALANINE AMINOTRANSFERASE 42 U/L (12-78); ALBUMIN 3.3 G/DL (3.4-5.0); ALBUMIN/GLOBULIN RATIO 0.7 (1.1-1.5); ALKALINE PHOSPHATASE 123 IU/L (46-116); ANION GAP 12 (8-16); ASPARTATE AMINO TRANSFERASE 20 U/L (10-37); BILIRUBIN,TOTAL 0.4 MG/DL (0.1-1.0); BLOOD UREA NITROGEN 16 MG/DL (7-18); BUN/CREATININE RATIO 12.3 (5.4-32.0); CALCIUM 9.1 MG/DL (8.5-10.1); CHLORIDE 103 MMOL/L (99-107); GLUCOSE 100 MG/DL (70-104); LIPASE 118 U/L (73-393); POTASSIUM 4.1 MMOL/L (3.5-5.1); SODIUM 142 MMOL/L (135-145); TOTAL CARBON DIOXIDE 26.6 MMOL/L (24-32); TOTAL PROTEIN 8.2 G/DL (6.4-8.2); eGFR 57 ML/MIN
[2019-04-05] MEDS ORDERED: ONDA4TAB6 PO (11:02)
[2019-04-05] MEDS ORDERED: ORPH100T2 PO (11:02)
[2019-04-05] MEDS ORDERED: HYDR-4353 PO ×2 (11:02→11:07)
== END 2019-04-05 11:24 | disposition home or self-care (01) ==
LOC: ER 09:00
DX: K46.9 Unspecified abdominal hernia without obstruction or gangrene (principal); R10.32 Left lower quadrant pain; R11.2 Nausea with vomiting, unspecified; G43.909 Migraine, unspecified, not intractable, without status migrainosus; I10 Essential (primary) hypertension; J44.9 Chronic obstructive pulmonary disease, unspecified; M19.90 Unspecified osteoarthritis, unspecified site; F12.90 Cannabis use, unspecified, uncomplicated; F15.90 Other stimulant use, unspecified, uncomplicated; Z56.0 Unemployment, unspecified; Z90.49 Acquired absence of other specified parts of digestive tract; Z98.890 Other specified postprocedural states; Z91.018 Allergy to other foods; Z88.1 Allergy status to other antibiotic agents; Z79.899 Other long term (current) drug therapy; Z88.5 Allergy status to narcotic agent
CPT/HCPCS: 36415; 74176; 80053; 83690; 85025; 96361; 96374; 96375; 99284; J2270; J2405; J7030

== ENCOUNTER 2020-03-13 12:14 | Emergency (ER) | payer MEDICARE, MEDICAID ==
[~2020-03-13] VITALS: Ht 182.9 cm; Wt 140.9 kg
[~2020-03-13 12:14] MED LIST changes: +ALPR0.5T9 PO; +CYCL-1 PO; -LACT1CAP65 PO; -LISI-600 PO; -LOSA25TA41 PO; +LOSA50TA3 PO; +METO-411 PO; +OXYC1TAB17 PO; +SUMA50TA17 PO
[2020-03-13] MEDS ORDERED: aspirin 325mg tablet PO ONE (12:35)
[2020-03-13] MEDS ORDERED: metoprolol tartrate 1mg/ml inj IV ONE (12:35)
[2020-03-13 12:49] LABS: BASOPHILS # (AUTO) 0.1 X10'3 (0-0.2); BASOPHILS % (AUTO) 0.7 % (0-1); EOSINOPHILS # (AUTO) 0.1 X10'3 (0-0.9); EOSINOPHILS % (AUTO) 1.2 % (0-6); HEMATOCRIT 44.6 % (42.0-52.0); HEMOGLOBIN 15.1 g/dl (14.0-17.9); LYMPHOCYTES % (AUTO) 19.4 % (21-51); MEAN CORPUSCULAR HEMOGLOBIN 27.7 PG (27.0-31.0); MEAN CORPUSCULAR HGB CONC 33.8 g/dL (33.0-36.5); MEAN CORPUSCULAR VOLUME 82.1 FL (78-98); MEAN PLATELET VOLUME 7.2 FL (7.4-10.4); MONOCYTES # (AUTO) 0.5 X10'3 (0-0.9); NEUTROPHILS # (AUTO) 7.4 X10'3 (1.8-7.7); NEUTROPHILS % (AUTO) 73.7 % (42-75); PLATELET COUNT 218 X10'3 (140-440); RED BLOOD COUNT 5.43 X10'6 (4.70-6.10); RED CELL DISTRIBUTION WIDTH 15.6 % (11.5-14.5)
[2020-03-13] MEDS ORDERED: SUMAtriptan succ. 6 MG/0.5ml vial SQ ONE (12:55)
[2020-03-13] MEDS ORDERED: ketorolac trometh. 30mg/ml inj. IV ONE (12:55)
[2020-03-13] MEDS ORDERED: proCHLORperazine 10 MG/2 ml inj IV ONE (12:55)
[2020-03-13 13:11] LABS: ALANINE AMINOTRANSFERASE 30 U/L (12-78); ALBUMIN 3.7 G/DL (3.4-5.0); ALBUMIN/GLOBULIN RATIO 0.7 (1.1-1.5); ALKALINE PHOSPHATASE 149 IU/L (46-116); ANION GAP 13 (8-16); ASPARTATE AMINO TRANSFERASE 25 U/L (10-37); BILIRUBIN,TOTAL 0.8 MG/DL (0.1-1.0); BLOOD UREA NITROGEN 27 MG/DL (7-18); CALCIUM 9.2 MG/DL (8.5-10.1); CHLORIDE 103 MMOL/L (99-107); CREATININE 1.59 MG/DL (0.60-1.10); GLUCOSE 120 MG/DL (70-104); POTASSIUM 3.8 MMOL/L (3.5-5.1); SODIUM 140 MMOL/L (135-145); TOTAL CARBON DIOXIDE 24.5 MMOL/L (24-32); TOTAL PROTEIN 9.1 G/DL (6.4-8.2); eGFR 45 ML/MIN
[2020-03-13] MEDS ORDERED: furosemide 40mg/4ml inj IV ONE (13:20)
[2020-03-13] MEDS ORDERED: furosemide 10 MG/1 ML 10ml inj IV ONE (13:20)
[2020-03-13] MEDS ORDERED: labetalol 20mg/4ml (5mg/ml) syringe IV ONE ×2 (13:40→14:15)
[2020-03-13] MEDS ORDERED: losartan 50mg tablet PO ONE (14:15)
[2020-03-13] MEDS ORDERED: FURO-150 PO (14:19)
[2020-03-13] MEDS ORDERED: METO100T7 PO (14:19)
[2020-03-13] MEDS ORDERED: LOSA50TA3 PO (14:19)
--- NOTE | 2020-03-13 14:30 | NUR ---
PER DR SANDOVAL PATIENT OKAY TO DC WHEN SBP IS <200. DR BAHENA AWARE.
--- NOTE | 2020-03-13 15:31 | NUR ---
DR BAHENA MADE AWARE OF BP 208/120, PER MD PATIENT SAFE TO DC IN COMPARISSON TO BP AT ADMISSION 253/137.
[2020-03-13 15:42] VITALS: BP 208/120
== END 2020-03-13 15:43 | disposition home or self-care (01) ==
LOC: ER 12:15
DX: I10 Essential (primary) hypertension (principal); R07.89 Other chest pain; G43.909 Migraine, unspecified, not intractable, without status migrainosus; J44.9 Chronic obstructive pulmonary disease, unspecified; M19.90 Unspecified osteoarthritis, unspecified site; F12.90 Cannabis use, unspecified, uncomplicated; F15.90 Other stimulant use, unspecified, uncomplicated; Z86.69 Personal history of other diseases of the nervous system and sense organs; Z98.890 Other specified postprocedural states; Z56.0 Unemployment, unspecified; Z88.1 Allergy status to other antibiotic agents; Z91.018 Allergy to other foods; Z88.8 Allergy status to other drugs, medicaments and biological substances; Z79.899 Other long term (current) drug therapy
CPT/HCPCS: 36415; 71045; 80053; 83880; 84484; 85025; 93005; 96372; 96374; 96375; 96376; 99285; J0780; J1885; J1940; J3030; J3490

== ENCOUNTER 2021-03-12 15:22 | Inpatient (IN) | payer MEDICARE, MEDICAID ==
[~2021-03-12] VITALS: Ht 172.7 cm; Wt 59.5 kg
[~2021-03-12 15:22] MED LIST changes: -ALPR0.5T9 PO; +CLON0.3T PO; -CYCL-1 PO; +DILT240C92 PO; +DULO60CA65 PO; -FURO-150 PO; -GABA-532 PO; -LOSA50TA3 PO; -METF-438 PO; +NITR0.4T48 PO; -OXYC1TAB17 PO; +PANT40TA54 PO; -POTA8CAP20 PO; +PREG150C46 PO; -SUMA50TA17 PO; +VALS80TA32 PO
[2021-03-12] MEDS ORDERED: acetaminophen 325mg tablet PO ONE (15:35)
[2021-03-12 15:53] LABS: BASOPHILS % (AUTO) 0.2 % (0-1); EOSINOPHILS % (AUTO) 0 % (0-6); HEMOGLOBIN 12.2 g/dl (14.0-17.9); LYMPHOCYTES % (AUTO) 4.8 % (21-51); MEAN CORPUSCULAR HEMOGLOBIN 26.6 PG (27.0-31.0); MEAN CORPUSCULAR HGB CONC 32.9 g/dL (33.0-36.5); MEAN PLATELET VOLUME 7.2 FL (7.4-10.4); MONOCYTES # (AUTO) 0.5 X10'3 (0-0.9); MONOCYTES % (AUTO) 2.3 % (2-12); NEUTROPHILS # (AUTO) 20.1 X10'3 (1.8-7.7); NEUTROPHILS % (AUTO) 92.7 % (42-75); PLATELET COUNT 173 X10'3 (140-440); RED BLOOD COUNT 4.57 X10'6 (4.70-6.10); RED CELL DISTRIBUTION WIDTH 18.4 % (11.5-14.5); WHITE BLOOD COUNT 21.6 X10'3 (4.5-11.0)
[2021-03-12 16:17] LABS: ALANINE AMINOTRANSFERASE 18 U/L (12-78); ALBUMIN 2.9 G/DL (3.4-5.0); ALBUMIN/GLOBULIN RATIO 0.6 (1.1-1.5); ALKALINE PHOSPHATASE 119 IU/L (46-116); ANION GAP 10 (8-16); ASPARTATE AMINO TRANSFERASE 32 U/L (10-37); BILIRUBIN,TOTAL 1.4 MG/DL (0.1-1.0); BLOOD UREA NITROGEN 30 MG/DL (7-18); BUN/CREATININE RATIO 10.6 (5.4-32.0); CALCIUM 8.2 MG/DL (8.5-10.1); CHLORIDE 103 MMOL/L (99-107); CREATININE 2.83 MG/DL (0.60-1.10); GLUCOSE 167 MG/DL (70-104); POTASSIUM 3.7 MMOL/L (3.5-5.1); SODIUM 137 MMOL/L (135-145); TOTAL CARBON DIOXIDE 24.5 MMOL/L (24-32); TOTAL PROTEIN 7.5 G/DL (6.4-8.2); eGFR 23 ML/MIN
--- NOTE | 2021-03-12 16:29 | NUR ---
pt came back from ct scan.
[2021-03-12] MEDS ORDERED: LIDOcaine 2% 10ml TOPICAL JELLY (Urojet) TP ONE (16:45)
--- NOTE | 2021-03-12 17:00 | NUR ---
notified dr hook about pt bp 205/91 a nd b/l leg cellulitis and hot to touch and increased lft leg swelling and redness.
[2021-03-12] MEDS ORDERED: piperacillin/tazo 4.5gm/100ml 100 ML IV ONE (17:05)
[2021-03-12] MEDS ORDERED: VANCOMYCIN 1,500MG inj. 1,500 MG in normal saline 500ml IV soln 300 ML IV ONE (17:05)
[2021-03-12 17:07] LABS: CLARITY,URINE CLOUDY (Clear); GLUCOSE, URINE 250 mg/dl (Neg); KETONES,URINE TRACE mg/dl (Neg); LEUKOCYTE ESTERASE ,URINE NEGATIVE (Neg); NITRITES, URINE NEGATIVE (Neg); OCCULT BLOOD,URINE LARGE (Neg); PROTEIN,URINE 100 mg/dl (Neg); UROBILINOGEN,URINE 0.2 E.U/dL (0.2-1.0)
[2021-03-12 17:15] LABS: COLOR,URINE DARK YELLOW (Yellow); UA COLLECTION TYPE FOLEY CATH
[2021-03-12 17:16] LABS: BACTERIA,URINE FEW /HPF (Neg); WBC,URINE 0-4 /HPF (0-4)
[2021-03-12 17:17] LABS: CELLULAR CAST 0-4 /LPF (NEGATIVE); HYALINE CASTS 0-3 /LPF (NEGATIVE); MUCUS STRANDS FEW /LPF (Neg); SQUAMOUS EPITHELIAL CELL,UR FEW /LPF (FEW)
[2021-03-12 17:21] LABS: COARSE GRANULAR CAST 0-3 /LPF (NEGATIVE)
[2021-03-12] MEDS ORDERED: NITR0.4T51 SL (17:25)
[2021-03-12] MEDS ORDERED: magnesium Cl slow-release 64mg tablet PO PRN (17:50)
[2021-03-12] MEDS ORDERED: magnesium 4gm in 100ml NS 100 ML IV PRN (17:50)
[2021-03-12] MEDS ORDERED: potassium Cl 20 mEq SR tablet PO PRN ×2 (17:50)
[2021-03-12] MEDS ORDERED: ondansetron/PF 4mg/2ml inj IV PRN (17:50)
[2021-03-12] MEDS ORDERED: acetaminophen 325mg tablet PO PRN (17:50)
[2021-03-12] MEDS ORDERED: magnesium 2GM in 50ml NS 50 ML IV PRN (17:50)
[2021-03-12] MEDS ORDERED: potassium Cl 40MEQ/1/2NS 520ml 520 ML IV PRN ×2 (17:50)
[2021-03-12] MEDS: normal saline 1000ml 1,000 ML IV SCH (17:57)
--- NOTE | 2021-03-12 19:16 | NUR ---
DR MEREDITH AT BEDSIDE AWARE OF PT VITALS ,BP 206/97,SPO2 96% RA ,HR 87,RR 18.
[2021-03-12] MEDS: K and/or MAG REPLACEMENT MC SCH (19:57)
[2021-03-12] MEDS ORDERED: VANCOMYCIN 1,500MG inj. 1,500 MG in normal saline 500ml IV soln 500 ML IV SCH (20:00)
[2021-03-12] MEDS ORDERED: piperacillin/tazo 4.5gm/100ml 100 ML IV SCH (20:00)
--- NOTE | 2021-03-12 22:00 | NUR ---
received ED report from Arnaldo CALZADA, had the opportunity to review patients chart and ask questions before assuming patient care
[2021-03-12 22:05] VITALS: BP 179/78
[2021-03-13 00:25] VITALS: BP 209/90
[2021-03-13] MEDS: ceFAZolin/D5W- 1GM premix 50 ML IV SCH ×3 (01:42→16:10)
[2021-03-13] MEDS: normal saline 1000ml 1,000 ML IV SCH ×3 (03:50→23:53)
[2021-03-13 07:00] VITALS: BP 157/84
--- NOTE | 2021-03-13 07:18 | NUR ---
Patient in room [facility] 351. I have received report from Jarad CALZAAD and had the opportunity to ask questions and assume patient care.
[2021-03-13] MEDS: K and/or MAG REPLACEMENT MC SCH ×2 (08:00→20:00)
--- NOTE | 2021-03-13 08:10 | NUR ---
Problems reprioritized. Patient report given, questions answered & plan of care reviewed with Yajaira CALZADA.
[2021-03-13] MEDS: hydrALAZINE 20mg/ml inj. IV SCH ×3 (08:23→20:59)
[2021-03-13 09:52] LABS: BASOPHILS % (AUTO) 0.2 % (0-1); EOSINOPHILS % (AUTO) 0 % (0-6); HEMATOCRIT 34.4 % (42.0-52.0); HEMOGLOBIN 11.5 g/dl (14.0-17.9); LYMPHOCYTES # (AUTO) 0.9 X10'3 (1.1-4.8); LYMPHOCYTES % (AUTO) 4.5 % (21-51); MEAN CORPUSCULAR HEMOGLOBIN 26.8 PG (27.0-31.0); MEAN CORPUSCULAR HGB CONC 33.4 g/dL (33.0-36.5); MEAN CORPUSCULAR VOLUME 80.3 FL (78-98); MEAN PLATELET VOLUME 7.5 FL (7.4-10.4); MONOCYTES # (AUTO) 0.7 X10'3 (0-0.9); MONOCYTES % (AUTO) 3.5 % (2-12); NEUTROPHILS # (AUTO) 19.3 X10'3 (1.8-7.7); NEUTROPHILS % (AUTO) 91.8 % (42-75); PLATELET COUNT 143 X10'3 (140-440); RED BLOOD COUNT 4.28 X10'6 (4.70-6.10); RED CELL DISTRIBUTION WIDTH 18.7 % (11.5-14.5)
[2021-03-13 10:02] LABS: ALBUMIN 2.3 G/DL (3.4-5.0); ANION GAP 10 (8-16); BLOOD UREA NITROGEN 33 MG/DL (7-18); BUN/CREATININE RATIO 12.3 (5.4-32.0); CALCIUM 7.7 MG/DL (8.5-10.1); CHLORIDE 103 MMOL/L (99-107); CREATININE 2.68 MG/DL (0.60-1.10); GLUCOSE 236 MG/DL (70-104); MAGNESIUM 1.8 MG/DL (1.5-2.4); POTASSIUM 3.5 MMOL/L (3.5-5.1); SODIUM 135 MMOL/L (135-145); TOTAL CARBON DIOXIDE 22.4 MMOL/L (24-32); eGFR 25 ML/MIN
[2021-03-13 11:00] VITALS: BP 175/91
[2021-03-13] MEDS: vitamin A & D ointment-NF 1 APPLIC TUBE TP SCH (14:30)
[2021-03-13] MEDS: HYDROcodone/acetaminophen 5mg/325mg tablet PO PRN ×2 (16:11→21:09)
[2021-03-13 16:32] VITALS: BP 216/112
[2021-03-13 18:00] VITALS: BP 199/94
--- NOTE | 2021-03-13 18:36 | NUR ---
Patient in room [facility] 351. I have received report from ZHENG Gates and had the opportunity to ask questions and assume patient care.
--- NOTE | 2021-03-13 18:54 | NUR ---
Problems reprioritized. Patient report given, questions answered & plan of care reviewed with Aden CALZADA.
--- NOTE | 2021-03-13 19:30 | NUR ---
A&D medication on eMAR was not available at 1430 per day shift nurse. I non admined so medication would not show up late on eMAR.
[2021-03-13] MEDS: lactobacillus rhamnosus 10,000 MMU CELLS/CAPSULE PO SCH (20:56)
[2021-03-13] MEDS: pregabalin 75mg capsule PO SCH (20:56)
[2021-03-13] MEDS: cloNIDine 0.1 mg tablet PO SCH (20:56)
[2021-03-14] VITALS: BP 161/84
[2021-03-14] MEDS: ceFAZolin/D5W- 1GM premix 50 ML IV SCH ×2 (00:42→07:44)
[2021-03-14] MEDS: HYDROcodone/acetaminophen 5mg/325mg tablet PO PRN (02:40)
[2021-03-14] MEDS: hydrALAZINE 20mg/ml inj. IV SCH ×4 (02:41→20:20)
--- NOTE | 2021-03-14 03:16 | NUR ---
Patients is now reddened, and warm to touch past the outlined area under the left knee. It is now up to the upper thigh. I outlined the red area. Hospitalist notified and a order to start Vancomycin, pharmacy to dose was given. Patient denies any reaction to Vancomycin in the past, and has received it during this stay without any reaction noted. Discussed this with Pharmacist.
[2021-03-14] MEDS ORDERED: vancomycin/NS 1 GM ADD-VANTAGE 250 ML IV SCH (04:00)
--- NOTE | 2021-03-14 06:53 | NUR ---
Patient in room [facility] 351. I have received report from ZHENG Samaniego and had the opportunity to ask questions and assume patient care.
[2021-03-14 07:00] VITALS: BP 190/97
[2021-03-14] MEDS: metoprolol succinate 25mg (24-HOUR) SR. Tablet PO SCH (07:44)
[2021-03-14] MEDS: lactobacillus rhamnosus 10,000 MMU CELLS/CAPSULE PO SCH ×2 (07:44→20:18)
[2021-03-14] MEDS: diltiazem CD 120mg capsule (once-daily) PO SCH (07:44)
[2021-03-14] MEDS: duloxetine 30mg CAPSULE.DR PO SCH (07:45)
[2021-03-14] MEDS: vitamin A & D ointment-NF 1 APPLIC TUBE TP SCH (07:45)
[2021-03-14] MEDS: losartan 50mg tablet PO SCH (07:45)
[2021-03-14] MEDS: pregabalin 75mg capsule PO SCH ×2 (07:45→20:18)
[2021-03-14] MEDS: pantoprazole 40mg Tablet.DR PO SCH (07:45)
[2021-03-14] MEDS: K and/or MAG REPLACEMENT MC SCH ×2 (08:00→20:00)
[2021-03-14 11:00] VITALS: BP 165/81
[2021-03-14] MEDS: HYDROcodone/acetaminophen 10/325mg tab PO PRN ×2 (11:22→20:18)
[2021-03-14] MEDS: normal saline 1000ml 1,000 ML IV SCH ×2 (13:06→20:32)
[2021-03-14 17:09] LABS: BASOPHILS % (AUTO) 0.2 % (0-1); EOSINOPHILS # (AUTO) 0.1 X10'3 (0-0.9); EOSINOPHILS % (AUTO) 0.8 % (0-6); HEMATOCRIT 38.2 % (42.0-52.0); HEMOGLOBIN 12.7 g/dl (14.0-17.9); LYMPHOCYTES # (AUTO) 1.3 X10'3 (1.1-4.8); LYMPHOCYTES % (AUTO) 8.4 % (21-51); MEAN CORPUSCULAR HEMOGLOBIN 27.1 PG (27.0-31.0); MEAN CORPUSCULAR HGB CONC 33.3 g/dL (33.0-36.5); MEAN CORPUSCULAR VOLUME 81.4 FL (78-98); MEAN PLATELET VOLUME 7.5 FL (7.4-10.4); MONOCYTES # (AUTO) 0.8 X10'3 (0-0.9); MONOCYTES % (AUTO) 5.2 % (2-12); NEUTROPHILS # (AUTO) 13.1 X10'3 (1.8-7.7); NEUTROPHILS % (AUTO) 85.4 % (42-75); PLATELET COUNT 155 X10'3 (140-440); RED BLOOD COUNT 4.69 X10'6 (4.70-6.10); RED CELL DISTRIBUTION WIDTH 18.8 % (11.5-14.5); WHITE BLOOD COUNT 15.4 X10'3 (4.5-11.0)
[2021-03-14 17:29] LABS: ALBUMIN 2.2 G/DL (3.4-5.0); ANION GAP 11 (8-16); BLOOD UREA NITROGEN 30 MG/DL (7-18); CALCIUM 8.2 MG/DL (8.5-10.1); CHLORIDE 104 MMOL/L (99-107); GLUCOSE 133 MG/DL (70-104); POTASSIUM 3.8 MMOL/L (3.5-5.1); SODIUM 136 MMOL/L (135-145); TOTAL CARBON DIOXIDE 21.4 MMOL/L (24-32); eGFR 34 ML/MIN
[2021-03-14 17:33] LABS: HEMOGLOBIN A1C 6.5 % (4.5-6.2)
[2021-03-14 18:00] VITALS: BP 188/89
--- NOTE | 2021-03-14 18:08 | NUR ---
Problems reprioritized. Patient report given, questions answered & plan of care reviewed with ZHENG Mcintosh.
--- NOTE | 2021-03-14 18:10 | NUR ---
Patient in room [facility] 351. I have received report from DANAE CALZADA and had the opportunity to ask questions and assume patient care.
[2021-03-14] MEDS: cloNIDine 0.1 mg tablet PO SCH (20:18)
[2021-03-14] MEDS: cefepime 1GM/NS ADD-VANTAGE 100 ML IV SCH (20:21)
[2021-03-15] VITALS: BP 172/89
[2021-03-15] MEDS: HYDROcodone/acetaminophen 10/325mg tab PO PRN ×4 (00:39→21:25)
[2021-03-15] MEDS: hydrALAZINE 20mg/ml inj. IV SCH ×4 (02:47→21:11)
[2021-03-15] MEDS: normal saline 1000ml 1,000 ML IV SCH ×3 (05:50→21:08)
--- NOTE | 2021-03-15 06:29 | NUR ---
Problems reprioritized. Patient report given, questions answered & plan of care reviewed with DANAE CALZADA.
[2021-03-15 06:35] LABS: BASOPHILS % (AUTO) 0.4 % (0-1); EOSINOPHILS # (AUTO) 0.1 X10'3 (0-0.9); EOSINOPHILS % (AUTO) 1.5 % (0-6); HEMATOCRIT 34.4 % (42.0-52.0); HEMOGLOBIN 11.6 g/dl (14.0-17.9); LYMPHOCYTES # (AUTO) 1.2 X10'3 (1.1-4.8); LYMPHOCYTES % (AUTO) 12.2 % (21-51); MEAN CORPUSCULAR HEMOGLOBIN 27.4 PG (27.0-31.0); MEAN CORPUSCULAR HGB CONC 33.7 g/dL (33.0-36.5); MEAN CORPUSCULAR VOLUME 81.1 FL (78-98); MEAN PLATELET VOLUME 7.8 FL (7.4-10.4); MONOCYTES # (AUTO) 0.6 X10'3 (0-0.9); MONOCYTES % (AUTO) 6.3 % (2-12); NEUTROPHILS # (AUTO) 7.7 X10'3 (1.8-7.7); NEUTROPHILS % (AUTO) 79.6 % (42-75); PLATELET COUNT 146 X10'3 (140-440); RED BLOOD COUNT 4.25 X10'6 (4.70-6.10); RED CELL DISTRIBUTION WIDTH 18.7 % (11.5-14.5); WHITE BLOOD COUNT 9.7 X10'3 (4.5-11.0)
--- NOTE | 2021-03-15 06:42 | NUR ---
Patient in room [facility] 351. I have received report from ZHENG Mcintosh and had the opportunity to ask questions and assume patient care.
[2021-03-15 07:00] VITALS: BP 139/77
[2021-03-15 07:08] LABS: ANION GAP 10 (8-16); BLOOD UREA NITROGEN 29 MG/DL (7-18); BUN/CREATININE RATIO 15.7 (5.4-32.0); CALCIUM 8.2 MG/DL (8.5-10.1); CHLORIDE 106 MMOL/L (99-107); CREATININE 1.85 MG/DL (0.60-1.10); GLUCOSE 119 MG/DL (70-104); MAGNESIUM 1.9 MG/DL (1.5-2.4); POTASSIUM 4.1 MMOL/L (3.5-5.1); SODIUM 139 MMOL/L (135-145); eGFR 38 ML/MIN
[2021-03-15] MEDS: K and/or MAG REPLACEMENT MC SCH ×2 (08:00→20:00)
[2021-03-15] MEDS: metoprolol succinate 25mg (24-HOUR) SR. Tablet PO SCH (08:31)
[2021-03-15] MEDS: cefepime 1GM/NS ADD-VANTAGE 100 ML IV SCH ×2 (08:31→21:24)
[2021-03-15] MEDS: diltiazem CD 120mg capsule (once-daily) PO SCH (08:31)
[2021-03-15] MEDS: losartan 50mg tablet PO SCH (08:32)
[2021-03-15] MEDS: lactobacillus rhamnosus 10,000 MMU CELLS/CAPSULE PO SCH ×2 (08:32→21:10)
[2021-03-15] MEDS: duloxetine 30mg CAPSULE.DR PO SCH (08:32)
[2021-03-15] MEDS: pantoprazole 40mg Tablet.DR PO SCH (08:32)
[2021-03-15] MEDS: pregabalin 75mg capsule PO SCH ×2 (08:32→21:25)
[2021-03-15 11:00] VITALS: BP 133/73
--- NOTE | 2021-03-15 11:30 | NUR ---
Pt agitated and upset after Dr Tobar (hospitalist) rounded. States that she did not answer his questions and was only in his room briefly. Hospitalist notified of pt's request to speak with her again, but states that she is unable to return to the floor but is willing to speak with him over the phone. Pt declined to speak with her over the phone. Hospitalist instructed this RN to tell the pt that she is consulting our ID specialist regarding his cellulitis.
[2021-03-15] MEDS: vancomycin inj. 750 MG in normal saline 250ml IV soln 250 ML IV SCH (13:53)
--- NOTE | 2021-03-15 15:00 | NUR ---
FC DC'd per written order. 725cc's clear yellow urine drained. Pt tolerated well. Education provided regarding post FC removal and voiding within a 6 hour window. Will continue to monitor.
[2021-03-15] MEDS: vitamin A & D ointment-NF 1 APPLIC TUBE TP SCH (15:23)
--- NOTE | 2021-03-15 18:20 | NUR ---
Patient in room [facility] 351. I have received report from DANAE CALZADA and had the opportunity to ask questions and assume patient care. Addendum: 03/15/21 at 1924 by Shu Villarreal RN Amended: Links added.
--- NOTE | 2021-03-15 18:42 | NUR ---
Problems reprioritized. Patient report given, questions answered & plan of care reviewed with ZHENG Ireland.
[2021-03-15 19:28] VITALS: BP 132/81
[2021-03-15] MEDS: cloNIDine 0.1 mg tablet PO SCH (21:10)
[2021-03-16] VITALS: BP 156/74
[2021-03-16 02:00] VITALS: BP 148/82
[2021-03-16] MEDS: hydrALAZINE 20mg/ml inj. IV SCH ×4 (02:08→20:59)
[2021-03-16 05:43] LABS: BASOPHILS % (AUTO) 0.2 % (0-1); EOSINOPHILS # (AUTO) 0.2 X10'3 (0-0.9); EOSINOPHILS % (AUTO) 1.9 % (0-6); HEMATOCRIT 34.1 % (42.0-52.0); HEMOGLOBIN 11.2 g/dl (14.0-17.9); LYMPHOCYTES # (AUTO) 0.8 X10'3 (1.1-4.8); LYMPHOCYTES % (AUTO) 7.5 % (21-51); MEAN CORPUSCULAR HGB CONC 32.9 g/dL (33.0-36.5); MEAN CORPUSCULAR VOLUME 82.1 FL (78-98); MEAN PLATELET VOLUME 7.9 FL (7.4-10.4); MONOCYTES # (AUTO) 0.7 X10'3 (0-0.9); MONOCYTES % (AUTO) 6.5 % (2-12); NEUTROPHILS % (AUTO) 83.9 % (42-75); PLATELET COUNT 191 X10'3 (140-440); RED BLOOD COUNT 4.15 X10'6 (4.70-6.10); WHITE BLOOD COUNT 10.7 X10'3 (4.5-11.0)
[2021-03-16 06:06] LABS: ANION GAP 6 (8-16); BLOOD UREA NITROGEN 30 MG/DL (7-18); BUN/CREATININE RATIO 16.2 (5.4-32.0); CALCIUM 8.1 MG/DL (8.5-10.1); CHLORIDE 105 MMOL/L (99-107); CREATININE 1.85 MG/DL (0.60-1.10); GLUCOSE 146 MG/DL (70-104); POTASSIUM 4.3 MMOL/L (3.5-5.1); SODIUM 136 MMOL/L (135-145); TOTAL CARBON DIOXIDE 25.3 MMOL/L (24-32); eGFR 38 ML/MIN
--- NOTE | 2021-03-16 06:32 | NUR ---
Problems reprioritized. Patient report given, questions answered & plan of care reviewed with KETTY CALZADA. Addendum: 03/16/21 at 0632 by Shu Villarreal RN Amended: Links added.
--- NOTE | 2021-03-16 06:53 | NUR ---
Patient in room [facility] 351. I have received report from ZHENG MESSER and had the opportunity to ask questions and assume patient care.
[2021-03-16 07:50] LABS: ANISOCYTOSIS 2+; PLATELET ESTIMATE NORMAL; POIKILOCYTOSIS FEW
[2021-03-16 08:00] VITALS: BP 158/75
[2021-03-16] MEDS: K and/or MAG REPLACEMENT MC SCH ×2 (08:00→20:00)
[2021-03-16] MEDS: vitamin A & D ointment-NF 1 APPLIC TUBE TP SCH (08:00)
[2021-03-16] MEDS: normal saline 1000ml 1,000 ML IV SCH ×2 (09:18→21:50)
[2021-03-16] MEDS: cefepime 1GM/NS ADD-VANTAGE 100 ML IV SCH (09:25)
[2021-03-16] MEDS: metoprolol succinate 25mg (24-HOUR) SR. Tablet PO SCH (09:26)
[2021-03-16] MEDS: pantoprazole 40mg Tablet.DR PO SCH (09:26)
[2021-03-16] MEDS: diltiazem CD 120mg capsule (once-daily) PO SCH (09:27)
[2021-03-16] MEDS: lactobacillus rhamnosus 10,000 MMU CELLS/CAPSULE PO SCH ×2 (09:27→20:59)
[2021-03-16] MEDS: pregabalin 75mg capsule PO SCH ×2 (09:28→21:00)
[2021-03-16] MEDS: losartan 50mg tablet PO SCH (09:28)
[2021-03-16] MEDS: HYDROcodone/acetaminophen 10/325mg tab PO PRN ×3 (09:29→22:09)
[2021-03-16] MEDS: duloxetine 30mg CAPSULE.DR PO SCH (09:29)
[2021-03-16 11:00] VITALS: BP 157/81
[2021-03-16] MEDS ORDERED: piperacillin/tazo 3.375gm/50ml 50 ML IV SCH (13:07)
[2021-03-16] MEDS: vancomycin inj. 750 MG in normal saline 250ml IV soln 250 ML IV SCH (13:53)
[2021-03-16 14:01] VITALS: BP 162/80
[2021-03-16] MEDS: piperacillin/tazo 3.375gm/50ml 50 ML IV SCH (17:36)
--- NOTE | 2021-03-16 18:32 | NUR ---
Problems reprioritized. Patient report given, questions answered & plan of care reviewed with ZHENG MESSER.
--- NOTE | 2021-03-16 18:35 | NUR ---
Patient in room [facility] 351. I have received report from KETTY CALZADA and had the opportunity to ask questions and assume patient care. Addendum: 03/16/21 at 1836 by Shu Villarreal RN Amended: Links added.
[2021-03-16 20:00] VITALS: BP 112/61
[2021-03-16] MEDS: cloNIDine 0.1 mg tablet PO SCH (20:59)
--- NOTE | 2021-03-16 22:00 | NUR ---
DRESSINGS TO LOWER LEGS DRY AND INTACT AND LEFT LEG REMAINS LARGER THAN RIGHT NOTICED VERY VERY SLIGHT DECREASE IN REDNESS FROM MARKINGS ON UPPER BORDER OF THE LEG RECEDING. PT GIVEN YOGURT KELLIE CRACKERS FRESH WATER AND CUP AND PER REQUEST A NORCO FOR PAIN AND RESTORIL FOR SLEEP.
[2021-03-16] MEDS: temazepam 15mg capsule PO PRN (22:09)
[2021-03-17] VITALS: BP 157/81
[2021-03-17] MEDS: temazepam 15mg capsule PO PRN (00:24)
[2021-03-17] MEDS: piperacillin/tazo 3.375gm/50ml 50 ML IV SCH ×2 (00:25→08:21)
--- NOTE | 2021-03-17 00:40 | NUR ---
pt medicated for sleep with Restoril a second dose for sleep he had dressings off his legs and redressed as ordered.
[2021-03-17] MEDS: hydrALAZINE 20mg/ml inj. IV SCH ×3 (02:38→14:33)
[2021-03-17] MEDS: normal saline 1000ml 1,000 ML IV SCH (05:07)
--- NOTE | 2021-03-17 06:11 | NUR ---
Problems reprioritized. Patient report given, questions answered & plan of care reviewed with MOJGAN CALZADA. Addendum: 03/17/21 at 0611 by Shu Villarreal RN Amended: Links added.
[2021-03-17 06:51] LABS: BASOPHILS # (AUTO) 0.1 X10'3 (0-0.2); BASOPHILS % (AUTO) 0.5 % (0-1); EOSINOPHILS # (AUTO) 0.3 X10'3 (0-0.9); EOSINOPHILS % (AUTO) 2.5 % (0-6); HEMATOCRIT 33.1 % (42.0-52.0); HEMOGLOBIN 11.1 g/dl (14.0-17.9); LYMPHOCYTES # (AUTO) 1.3 X10'3 (1.1-4.8); MEAN CORPUSCULAR HGB CONC 33.3 g/dL (33.0-36.5); MEAN CORPUSCULAR VOLUME 80.9 FL (78-98); MEAN PLATELET VOLUME 7.7 FL (7.4-10.4); MONOCYTES # (AUTO) 0.7 X10'3 (0-0.9); NEUTROPHILS # (AUTO) 8.2 X10'3 (1.8-7.7); PLATELET COUNT 234 X10'3 (140-440); RED CELL DISTRIBUTION WIDTH 18.4 % (11.5-14.5); WHITE BLOOD COUNT 10.6 X10'3 (4.5-11.0)
[2021-03-17 07:00] VITALS: BP 166/87
--- NOTE | 2021-03-17 07:00 | NUR ---
Patient in room [facility] 351. I have received report from Shu CALZADA and had the opportunity to ask questions and assume patient care.
[2021-03-17 07:05] LABS: ANION GAP 8 (8-16); BLOOD UREA NITROGEN 28 MG/DL (7-18); BUN/CREATININE RATIO 16.1 (5.4-32.0); CALCIUM 8.1 MG/DL (8.5-10.1); CHLORIDE 107 MMOL/L (99-107); CREATININE 1.74 MG/DL (0.60-1.10); GLUCOSE 124 MG/DL (70-104); POTASSIUM 4.2 MMOL/L (3.5-5.1); SODIUM 138 MMOL/L (135-145); TOTAL CARBON DIOXIDE 22.6 MMOL/L (24-32); eGFR 41 ML/MIN
[2021-03-17 07:52] LABS: ANISOCYTOSIS 2+; GIANT PLATELET FEW; LARGE PLATELETS FEW; PLATELET ESTIMATE NORMAL; TOTAL CELLS COUNTED 100
[2021-03-17] MEDS: K and/or MAG REPLACEMENT MC SCH (08:00)
[2021-03-17] MEDS ORDERED: nicotine 14mg patch - 24hr TD SCH (08:00)
[2021-03-17] MEDS: lactobacillus rhamnosus 10,000 MMU CELLS/CAPSULE PO SCH (08:23)
[2021-03-17] MEDS: duloxetine 30mg CAPSULE.DR PO SCH (08:23)
[2021-03-17] MEDS: diltiazem CD 120mg capsule (once-daily) PO SCH (08:23)
[2021-03-17] MEDS: losartan 50mg tablet PO SCH (08:23)
[2021-03-17] MEDS: pantoprazole 40mg Tablet.DR PO SCH (08:23)
[2021-03-17] MEDS: metoprolol succinate 25mg (24-HOUR) SR. Tablet PO SCH (08:24)
[2021-03-17] MEDS: pregabalin 75mg capsule PO SCH (08:24)
[2021-03-17] MEDS: vitamin A & D ointment-NF 1 APPLIC TUBE TP SCH (08:40)
[2021-03-17] MEDS: HYDROcodone/acetaminophen 10/325mg tab PO PRN (08:47)
--- NOTE | 2021-03-17 09:38 | NUR ---
Initial: Pt admitted w/ ALOC, though now A&0 x 4 per EMR. Pt able to eat well, mostly 100% of meals on Regular diet. Noted w/ L leg cellulitis. No N/V/D noted, LBM 03/17. No nutritional interventions implemented at this time, will continue to monitor. Rec: 1. Continue regular diet as tolerated 2. Bowel care per rx 3. Weekly wts Addendum: 03/17/21 at [address] Amended: Links added.
[2021-03-17] MEDS ORDERED: LINE600T12 PO (10:33)
[2021-03-17 11:00] VITALS: BP 148/80
[2021-03-17] MEDS ORDERED: linezolid 600mg tablet PO SCH (11:30)
--- NOTE | 2021-03-17 11:45 | NUR ---
PAGER ID: [phone] MESSAGE: re: Claire, Josh Gonzalez Please call. You were working on pt having outpt wound care at [facility] but I don't see it in the the MD d/c instructions. Did you still want this? Is Maria De Jesus D/C manufacturing planner aware? thank you, Amy [phone] Pt states he is working on finding a ride for d/c. Per MD finish Zosyn infusion prior to d/c as well. Will continue to monitor.
--- NOTE | 2021-03-17 11:49 | NUR ---
Page sent to D/C media planner. Per phone call from Dr Tobar: re: [phone] Dr Tobar wants pt to have outpatient wound care setup at [facility] prior to d/c. Thank you! Amy de [email or web address] Will continue to monitor.
[2021-03-17] MEDS ORDERED: VANCOMYCIN LEVEL IV ONE (12:30)
--- NOTE | 2021-03-17 12:49 | NUR ---
Spoke with d/c medical planner, she will set up outpatient wound care per [facility] clinic. Will continue to monitor.
[2021-03-17 14:33] VITALS: BP_SYST 148
--- NOTE | 2021-03-17 16:00 | NUR ---
Pt stable and appropriate for discharge. PIV d/c'd cannula intact. Reviewed with pt all d/c instructions including meds (and to take Cymbalta everyother day per Dr Butterfield), wound care (supplies given), and followup appt with [facility] outpt wound care, with pt given opportunity to ask questions, answers provided and pt verbalizing understanding. Prescriptions escripted to pharmacy of choice. Pt to call and schedule appt within one week with PCP. Pt to call Outpt wound care, PCP with any questions/concerns or return to nearest ED with any worsening symptoms. Pt states he has all personal belongings. Personal friend was to be here by 3pm but was held up. Pt escorted to front lobby via w/c by staff member and d/c'd home in private vehicle driven by friend.
== END 2021-03-17 16:10 | disposition home or self-care (01) | DRG 871 ==
LOC: ER 15:23 → ED HOLD 17:50 → SUR 3N 21:50
PROVIDERS: ADMIT Internal Medicine; ATTEND Internal Medicine
DX: A41.9 Sepsis, unspecified organism (principal); G93.41 Metabolic encephalopathy; N17.0 Acute kidney failure with tubular necrosis; L03.116 Cellulitis of left lower limb; F15.90 Other stimulant use, unspecified, uncomplicated; K57.90 Diverticulosis of intestine, part unspecified, without perforation or abscess without bleeding; G43.909 Migraine, unspecified, not intractable, without status migrainosus; Z20.822 Contact with and (suspected) exposure to COVID-19; M19.90 Unspecified osteoarthritis, unspecified site; F12.90 Cannabis use, unspecified, uncomplicated; I12.9 Hypertensive chronic kidney disease with stage 1 through stage 4 chronic kidney disease, or unspecified chronic kidney disease; J44.9 Chronic obstructive pulmonary disease, unspecified; N18.9 Chronic kidney disease, unspecified; R65.20 Severe sepsis without septic shock; R32 Unspecified urinary incontinence; Z88.8 Allergy status to other drugs, medicaments and biological substances; Z56.0 Unemployment, unspecified; Z72.0 Tobacco use; Z79.899 Other long term (current) drug therapy
CPT/HCPCS: 36415; 70450; 71045; 80048; 80053; 80202; 81001; 82948; 83036; 83605; 83735; 84145; 85007; 85008; 85025; 85610; 87040; 87081; 87635; 93005; 93922; 96365; 96368; 97116; 97161; 97530; 99285; C9803; G0378; J0360; J0690; J0692; J2543; J3370; J7030; J7040; J7050

== ENCOUNTER 2021-03-20 18:31 | Emergency (ER) | payer MEDICARE, MEDICAID ==
[~2021-03-20] VITALS: Ht 185.4 cm; Wt 129.0 kg
[~2021-03-20 18:31] MED LIST changes: +LINE600T12 PO; -NITR0.4T48 PO; +NITR0.4T51 SL
[2021-03-20 18:41] VITALS: BP 179/86
[2021-03-20 22:56] LABS: BASOPHILS # (AUTO) 0.1 X10'3 (0-0.2); BASOPHILS % (AUTO) 0.9 % (0-1); EOSINOPHILS # (AUTO) 0.2 X10'3 (0-0.9); EOSINOPHILS % (AUTO) 2.5 % (0-6); HEMATOCRIT 31.5 % (42.0-52.0); HEMOGLOBIN 10.7 g/dl (14.0-17.9); LYMPHOCYTES # (AUTO) 1.7 X10'3 (1.1-4.8); LYMPHOCYTES % (AUTO) 19.7 % (21-51); MEAN CORPUSCULAR HEMOGLOBIN 27.4 PG (27.0-31.0); MEAN CORPUSCULAR HGB CONC 33.8 g/dL (33.0-36.5); MEAN CORPUSCULAR VOLUME 80.9 FL (78-98); MEAN PLATELET VOLUME 6.9 FL (7.4-10.4); MONOCYTES # (AUTO) 0.8 X10'3 (0-0.9); NEUTROPHILS % (AUTO) 67.9 % (42-75); RED CELL DISTRIBUTION WIDTH 18.1 % (11.5-14.5); WHITE BLOOD COUNT 8.8 X10'3 (4.5-11.0)
[2021-03-20 23:12] LABS: ALANINE AMINOTRANSFERASE 23 U/L (12-78); ALBUMIN 2.3 G/DL (3.4-5.0); ALBUMIN/GLOBULIN RATIO 0.5 (1.1-1.5); ALKALINE PHOSPHATASE 158 IU/L (46-116); ANION GAP 8 (8-16); ASPARTATE AMINO TRANSFERASE 21 U/L (10-37); BILIRUBIN,TOTAL 0.4 MG/DL (0.1-1.0); BLOOD UREA NITROGEN 24 MG/DL (7-18); BUN/CREATININE RATIO 13.3 (5.4-32.0); CHLORIDE 109 MMOL/L (99-107); GLUCOSE 103 MG/DL (70-104); POTASSIUM 3.9 MMOL/L (3.5-5.1); SODIUM 145 MMOL/L (135-145); TOTAL CARBON DIOXIDE 28.2 MMOL/L (24-32); TOTAL PROTEIN 6.9 G/DL (6.4-8.2); eGFR 39 ML/MIN
[2021-03-20 23:29] LABS: PLATELET COUNT 389 X10'3 (140-440)
[2021-03-20] MEDS ORDERED: levoFLOXACIN 250mg tablet PO ONE (23:40)
[2021-03-20] MEDS ORDERED: LEVO500T89 PO (23:40)
== END 2021-03-21 01:02 | disposition home or self-care (01) ==
LOC: ER 18:32
DX: L03.116 Cellulitis of left lower limb (principal); I87.8 Other specified disorders of veins; I89.0 Lymphedema, not elsewhere classified; M79.662 Pain in left lower leg; M79.661 Pain in right lower leg; I10 Essential (primary) hypertension; J44.9 Chronic obstructive pulmonary disease, unspecified; M19.90 Unspecified osteoarthritis, unspecified site; F12.90 Cannabis use, unspecified, uncomplicated; F15.90 Other stimulant use, unspecified, uncomplicated; Z86.69 Personal history of other diseases of the nervous system and sense organs; Z98.890 Other specified postprocedural states; Z56.0 Unemployment, unspecified; Z88.1 Allergy status to other antibiotic agents; Z91.018 Allergy to other foods; Z79.2 Long term (current) use of antibiotics; Z79.899 Other long term (current) drug therapy
CPT/HCPCS: 36415; 80053; 85025; 99283

== ENCOUNTER 2021-05-04 04:13 | Emergency (ER) | payer MEDICARE, MEDICAID ==
[~2021-05-04] VITALS: Ht 170.2 cm; Wt 118.2 kg
[~2021-05-04 04:13] MED LIST changes: -LINE600T12 PO
[2021-05-04] MEDS ORDERED: iohexol 350MG/ML 100ml bottle IV ONE (04:29)
[2021-05-04] MEDS ORDERED: niCARDipine-NS 40mg/200ml IVPB 200 ML IV SCH (04:40)
[2021-05-04] MEDS ORDERED: diltiazem-D5W 125mg/125ml 125 ML IV SCH (04:40)
[2021-05-04] MEDS ORDERED: diltiazem-NS 100mg/100ml 100 ML IV SCH (04:40)
--- NOTE | 2021-05-04 04:40 | NUR ---
called for level 1 stroke alert. Pt just returning from CT. Brain bleed present left side of brain. Pt having difficulty speaking, can answer yes and no. Follows commands inconsistently. Has difficulty with 2 step commands. Element of expressive and receptive aphasia. Right side of face is weak. Right eye droops, however, is able to raise eyebrow and move both sides of face. Vision appears intact. Right facial droop is present. Unable to lift right arm, can move it slightly. Is able to lift right leg off bed though drift present. Sensory is impaired right side.
[2021-05-04 05:11] LABS: BASOPHILS # (AUTO) 0.1 X10'3 (0-0.2); BASOPHILS % (AUTO) 0.8 % (0-1); EOSINOPHILS # (AUTO) 0.1 X10'3 (0-0.9); EOSINOPHILS % (AUTO) 1.4 % (0-6); HEMATOCRIT 36.7 % (42.0-52.0); HEMOGLOBIN 12.1 g/dl (14.0-17.9); LYMPHOCYTES # (AUTO) 1.6 X10'3 (1.1-4.8); LYMPHOCYTES % (AUTO) 17.4 % (21-51); MEAN CORPUSCULAR HEMOGLOBIN 27.2 PG (27.0-31.0); MEAN CORPUSCULAR VOLUME 82.4 FL (78-98); MEAN PLATELET VOLUME 7.4 FL (7.4-10.4); MONOCYTES # (AUTO) 0.7 X10'3 (0-0.9); MONOCYTES % (AUTO) 7.5 % (2-12); NEUTROPHILS # (AUTO) 6.6 X10'3 (1.8-7.7); NEUTROPHILS % (AUTO) 72.9 % (42-75); PLATELET COUNT 208 X10'3 (140-440); RED BLOOD COUNT 4.45 X10'6 (4.70-6.10); RED CELL DISTRIBUTION WIDTH 16.3 % (11.5-14.5); WHITE BLOOD COUNT 9.1 X10'3 (4.5-11.0)
[2021-05-04 05:21] LABS: PARTIAL THROMBOPLASTIN TIME 28 SECONDS (22-32)
[2021-05-04 05:23] LABS: ANION GAP 12 (8-16); BILIRUBIN,TOTAL 0.8 MG/DL (0.1-1.0); BLOOD UREA NITROGEN 34 MG/DL (7-18); BUN/CREATININE RATIO 12.4 (5.4-32.0); CHLORIDE 104 MMOL/L (99-107); CREATININE 2.74 MG/DL (0.60-1.10); GLUCOSE 124 MG/DL (70-104); POTASSIUM 3.5 MMOL/L (3.5-5.1); SODIUM 140 MMOL/L (135-145); TOTAL CARBON DIOXIDE 24.1 MMOL/L (24-32); eGFR 24 ML/MIN
[2021-05-04 05:24] LABS: ALANINE AMINOTRANSFERASE 17 U/L (12-78); ALBUMIN 3.2 G/DL (3.4-5.0); ALBUMIN/GLOBULIN RATIO 0.6 (1.1-1.5); ALKALINE PHOSPHATASE 159 IU/L (46-116); ASPARTATE AMINO TRANSFERASE 23 U/L (10-37); TOTAL PROTEIN 8.4 G/DL (6.4-8.2)
[2021-05-04 05:57] VITALS: BP 125/72
--- NOTE | 2021-05-04 06:08 | NUR ---
Systolic BP 130-140 on nicardene at 15/mg/hr. Brief hand off report to bedside ZHENG Najera.
== END 2021-05-04 06:30 | disposition short-term general hospital (02) ==
LOC: ER 04:14
DX: S06.369A Traumatic hemorrhage of cerebrum, unspecified, with loss of consciousness of unspecified duration, initial encounter (principal); Z20.822 Contact with and (suspected) exposure to COVID-19; R41.82 Altered mental status, unspecified; Z86.73 Personal history of transient ischemic attack (TIA), and cerebral infarction without residual deficits; G43.909 Migraine, unspecified, not intractable, without status migrainosus; I10 Essential (primary) hypertension; J44.9 Chronic obstructive pulmonary disease, unspecified; M19.90 Unspecified osteoarthritis, unspecified site; F12.90 Cannabis use, unspecified, uncomplicated; F15.90 Other stimulant use, unspecified, uncomplicated; Z56.0 Unemployment, unspecified; Z79.2 Long term (current) use of antibiotics; Z88.8 Allergy status to other drugs, medicaments and biological substances; Z91.018 Allergy to other foods; Z79.899 Other long term (current) drug therapy; Z90.49 Acquired absence of other specified parts of digestive tract; Z98.890 Other specified postprocedural states; X58.XXXA Exposure to other specified factors, initial encounter; Y93.89 Activity, other specified; Y92.89 Other specified places as the place of occurrence of the external cause; Y99.8 Other external cause status
CPT/HCPCS: 36415; 70450; 71045; 80053; 85025; 85610; 85730; 87635; 93005; 99291; 99292; C9803; Q9967; 99285

== ENCOUNTER 2021-10-08 17:36 | Emergency (ER) | payer MEDICARE, MEDICAID ==
[~2021-10-08] VITALS: Ht 180.3 cm; Wt 120.0 kg
[2021-10-08] MEDS ORDERED: normal saline 1000ML IV soln IVB ONE (18:25)
[2021-10-08 19:25] LABS: BASOPHILS # (AUTO) 0.1 X10'3 (0-0.2); BASOPHILS % (AUTO) 0.9 % (0-1); EOSINOPHILS # (AUTO) 0.2 X10'3 (0-0.9); EOSINOPHILS % (AUTO) 3.2 % (0-6); HEMOGLOBIN 11.6 g/dl (14.0-17.9); LYMPHOCYTES # (AUTO) 2.4 X10'3 (1.1-4.8); LYMPHOCYTES % (AUTO) 32.5 % (21-51); MEAN CORPUSCULAR HEMOGLOBIN 28.4 PG (27.0-31.0); MEAN CORPUSCULAR HGB CONC 34.3 g/dL (33.0-36.5); MEAN CORPUSCULAR VOLUME 82.8 FL (78-98); MEAN PLATELET VOLUME 7.2 FL (7.4-10.4); MONOCYTES # (AUTO) 0.7 X10'3 (0-0.9); NEUTROPHILS % (AUTO) 54.4 % (42-75); PLATELET COUNT 238 X10'3 (140-440); RED BLOOD COUNT 4.11 X10'6 (4.70-6.10); RED CELL DISTRIBUTION WIDTH 15.9 % (11.5-14.5); WHITE BLOOD COUNT 7.4 X10'3 (4.5-11.0)
[2021-10-08 19:42] LABS: ALANINE AMINOTRANSFERASE 20 U/L (12-78); ALBUMIN 3.3 G/DL (3.4-5.0); ALBUMIN/GLOBULIN RATIO 0.9 (1.1-1.5); ALKALINE PHOSPHATASE 142 IU/L (46-116); ANION GAP 12 (8-16); ASPARTATE AMINO TRANSFERASE 19 U/L (10-37); BILIRUBIN,TOTAL 0.5 MG/DL (0.1-1.0); BLOOD UREA NITROGEN 24 MG/DL (7-18); BUN/CREATININE RATIO 14.6 (5.4-32.0); CALCIUM 8.6 MG/DL (8.5-10.1); CHLORIDE 107 MMOL/L (99-107); CREATININE 1.64 MG/DL (0.60-1.10); GLUCOSE 75 MG/DL (70-104); POTASSIUM 3.8 MMOL/L (3.5-5.1); SODIUM 145 MMOL/L (135-145); TOTAL CARBON DIOXIDE 26.5 MMOL/L (24-32); TOTAL PROTEIN 7.1 G/DL (6.4-8.2); eGFR 43 ML/MIN
[2021-10-08 20:16] LABS: CLARITY,URINE CLEAR (Clear); COLOR,URINE YELLOW (Yellow); GLUCOSE, URINE NEGATIVE (Neg); KETONES,URINE NEGATIVE (Neg); LEUKOCYTE ESTERASE ,URINE NEGATIVE (Neg); NITRITES, URINE NEGATIVE (Neg); OCCULT BLOOD,URINE NEGATIVE (Neg); PH,URINE 5.5 (4.8-8.0); PROTEIN,URINE NEGATIVE (Neg); UROBILINOGEN,URINE 0.2 E.U/dL (0.2-1.0)
[2021-10-08 20:18] LABS: UA COLLECTION TYPE URINAL
[2021-10-08] MEDS ORDERED: POTASSIUM CHLORIDE 20 MEQ/15 ML oral solution PO ONE (20:55)
[2021-10-08] MEDS ORDERED: furosemide 40mg/4ml inj IV ONE (20:55)
[2021-10-08] MEDS ORDERED: potassium Cl 20 mEq SR tablet PO ONE (21:05)
[2021-10-08 21:35] VITALS: BP 165/89
== END 2021-10-08 21:37 | disposition home or self-care (01) ==
LOC: ER 17:37
DX: R60.0 Localized edema (principal); R53.83 Other fatigue; G43.909 Migraine, unspecified, not intractable, without status migrainosus; I11.0 Hypertensive heart disease with heart failure; I50.9 Heart failure, unspecified; J44.9 Chronic obstructive pulmonary disease, unspecified; M19.90 Unspecified osteoarthritis, unspecified site; F12.90 Cannabis use, unspecified, uncomplicated; F15.90 Other stimulant use, unspecified, uncomplicated; Z86.73 Personal history of transient ischemic attack (TIA), and cerebral infarction without residual deficits; Z86.69 Personal history of other diseases of the nervous system and sense organs; Z98.890 Other specified postprocedural states; Z56.0 Unemployment, unspecified; Z88.1 Allergy status to other antibiotic agents; Z88.8 Allergy status to other drugs, medicaments and biological substances; Z79.899 Other long term (current) drug therapy
CPT/HCPCS: 36415; 71045; 80053; 81003; 83735; 83880; 84484; 85025; 93005; 96374; 99285; J1940; J7030

== ENCOUNTER 2022-02-11 16:56 | Emergency (ER) | payer MEDICARE, MEDICAID ==
[~2022-02-11] VITALS: Ht 185.4 cm; Wt 113.6 kg
[~2022-02-11 16:56] MED LIST changes: +AMLO10TA13 PO; +ATOR40TA72 PO; +CARV25TA3 PO; +CLON0.2T PO; -CLON0.3T PO; -DILT240C92 PO; -DULO60CA65 PO; +GABA800T11 PO; -METO-411 PO; -NITR0.4T51 SL; -PANT40TA54 PO; -PREG150C46 PO; +TRAZ150T78 PO; +VALS160T30 PO; -VALS80TA32 PO; +tamsulosin capsule PO
[2022-02-11] MEDS ORDERED: acetaminophen 325mg tablet PO STA (17:06)
[2022-02-11] MEDS ORDERED: normal saline 1000ML IV soln IV ONE (17:10)
[2022-02-11 18:06] LABS: BASOPHILS # (AUTO) 0.1 X10'3 (0-0.2); BASOPHILS % (AUTO) 0.7 % (0-1); EOSINOPHILS # (AUTO) 0.1 X10'3 (0-0.9); EOSINOPHILS % (AUTO) 1.4 % (0-6); HEMATOCRIT 38.9 % (42.0-52.0); HEMOGLOBIN 13.4 g/dl (14.0-17.9); LYMPHOCYTES # (AUTO) 2.5 X10'3 (1.1-4.8); LYMPHOCYTES % (AUTO) 28.3 % (21-51); MEAN CORPUSCULAR HEMOGLOBIN 28.1 PG (27.0-31.0); MEAN CORPUSCULAR HGB CONC 34.4 g/dL (33.0-36.5); MEAN CORPUSCULAR VOLUME 81.6 FL (78-98); MEAN PLATELET VOLUME 7.2 FL (7.4-10.4); MONOCYTES # (AUTO) 0.9 X10'3 (0-0.9); MONOCYTES % (AUTO) 10.4 % (2-12); NEUTROPHILS # (AUTO) 5.1 X10'3 (1.8-7.7); NEUTROPHILS % (AUTO) 59.2 % (42-75); PLATELET COUNT 257 X10'3 (140-440); RED BLOOD COUNT 4.76 X10'6 (4.70-6.10); RED CELL DISTRIBUTION WIDTH 15.3 % (11.5-14.5); WHITE BLOOD COUNT 8.7 X10'3 (4.5-11.0)
--- NOTE | 2022-02-11 18:16 | NUR ---
Patient's bp has improved post Ns bolus with sbp in 120s. He is now awake, and making full sentences. Reoriented to his environment. Yung cath placed, no hematuria at this time. report given to pm rn
[2022-02-11 18:18] LABS: ALANINE AMINOTRANSFERASE 22 U/L (12-78); ALBUMIN 3.2 G/DL (3.4-5.0); ALBUMIN/GLOBULIN RATIO 0.8 (1.1-1.5); ALKALINE PHOSPHATASE 131 IU/L (46-116); ANION GAP 7 (8-16); ASPARTATE AMINO TRANSFERASE 13 U/L (10-37); BILIRUBIN,TOTAL 0.4 MG/DL (0.1-1.0); BLOOD UREA NITROGEN 38 MG/DL (7-18); BUN/CREATININE RATIO 9.4 (5.4-32.0); CALCIUM 8.5 MG/DL (8.5-10.1); CHLORIDE 104 MMOL/L (99-107); CREATININE 4.05 MG/DL (0.60-1.10); GLUCOSE 109 MG/DL (70-104); POTASSIUM 3.6 MMOL/L (3.5-5.1); SODIUM 140 MMOL/L (135-145); TOTAL PROTEIN 7.4 G/DL (6.4-8.2); eGFR 15 ML/MIN
[2022-02-11 19:05] LABS: CLARITY,URINE SLIGHTLY CLOUDY (Clear); COLOR,URINE YELLOW (Yellow); GLUCOSE, URINE NEGATIVE (Neg); KETONES,URINE TRACE mg/dl (Neg); LEUKOCYTE ESTERASE ,URINE MODERATE (Neg); NITRITES, URINE NEGATIVE (Neg); OCCULT BLOOD,URINE LARGE (Neg); PROTEIN,URINE 100 mg/dl (Neg); UROBILINOGEN,URINE 0.2 E.U/dL (0.2-1.0)
[2022-02-11 19:08] LABS: UA COLLECTION TYPE CLN CATCH MIDSTREAM
[2022-02-11 19:13] LABS: WBC,URINE TNTC /HPF (0-4)
[2022-02-11 19:14] LABS: BACTERIA,URINE 4+ /HPF (Neg); RBC,URINE TNTC /HPF (0-2); SQUAMOUS EPITHELIAL CELL,UR FEW /LPF (FEW)
[2022-02-11] MEDS ORDERED: CefTRIAXone 2gm/D5W 50ml BAG 50 ML IV ONE (19:50)
[2022-02-11 21:00] VITALS: BP 141/71
[2022-02-11] MEDS ORDERED: CEPH-585 PO ×2 (21:17)
[2022-02-12] MEDS ORDERED: CEPH500C2 PO (22:33)
[2022-02-12] MEDS ORDERED: FLO0.4C PO (22:33)
[2022-02-12] MEDS ORDERED: DICL-182 PO (22:33)
[2022-02-12] MEDS ORDERED: TRAZ-256 PO (22:50)
[2022-02-12] MEDS ORDERED: HYDR-3973 PO (22:50)
[2022-02-12] MEDS ORDERED: FURO80TA3 PO (22:50)
[2022-02-12] MEDS ORDERED: AMLO5TAB PO (22:50)
[2022-02-12] MEDS ORDERED: GABA300C PO (22:50)
[2022-02-14] MEDS ORDERED: FURO80TA3 PO (11:15)
[2022-02-14] MEDS ORDERED: CIPR-202 PO (11:15)
== END 2022-02-11 21:43 | disposition home or self-care (01) ==
LOC: ER 16:57
DX: N39.0 Urinary tract infection, site not specified (principal); R31.9 Hematuria, unspecified; I11.9 Hypertensive heart disease without heart failure; J44.9 Chronic obstructive pulmonary disease, unspecified; G43.909 Migraine, unspecified, not intractable, without status migrainosus; E11.9 Type 2 diabetes mellitus without complications; Z88.1 Allergy status to other antibiotic agents; Z91.018 Allergy to other foods; Z88.5 Allergy status to narcotic agent; Z79.899 Other long term (current) drug therapy; Z79.2 Long term (current) use of antibiotics
CPT/HCPCS: 36415; 70450; 71045; 74176; 80053; 81001; 83605; 84145; 85025; 87040; 87088; 93005; 96361; 96365; 99285; J0696; J7030

== ENCOUNTER 2022-05-18 08:23 | Inpatient (IN) | payer MEDICARE, MEDICAID ==
[2022-05-14 13:39] LABS: BASOPHILS # (AUTO) 0.1 X10'3 (0-0.2); BASOPHILS % (AUTO) 0.8 % (0-1); EOSINOPHILS # (AUTO) 0.2 X10'3 (0-0.9); EOSINOPHILS % (AUTO) 2.9 % (0-6); LYMPHOCYTES # (AUTO) 2.4 X10'3 (1.1-4.8); LYMPHOCYTES % (AUTO) 30.6 % (21-51); MEAN CORPUSCULAR HEMOGLOBIN 28.4 PG (27.0-31.0); MEAN CORPUSCULAR HGB CONC 33.9 g/dL (33.0-36.5); MEAN CORPUSCULAR VOLUME 83.6 FL (78-98); MEAN PLATELET VOLUME 7.6 FL (7.4-10.4); MONOCYTES # (AUTO) 0.5 X10'3 (0-0.9); MONOCYTES % (AUTO) 6.6 % (2-12); NEUTROPHILS # (AUTO) 4.5 X10'3 (1.8-7.7); NEUTROPHILS % (AUTO) 59.1 % (42-75); PRE OP HEMATOCRIT 36.8 % (42.0-52.0); PRE OP HEMOGLOBIN 12.5 g/dL (14.0-17.9); PRE OP PLATELET COUNT 202 X10'3 (140-440); RED BLOOD COUNT 4.41 X10'6 (4.70-6.10); RED CELL DISTRIBUTION WIDTH 14.7 % (11.5-14.5)
[2022-05-14 13:43] LABS: ALBUMIN 3.6 G/DL (3.4-5.0); ALBUMIN/GLOBULIN RATIO 0.9 (1.1-1.5); ALKALINE PHOSPHATASE 148 IU/L (46-116); BLOOD UREA NITROGEN 28 MG/DL (7-18); CALCIUM 8.8 MG/DL (8.5-10.1); CHLORIDE 104 MMOL/L (99-107); CREATININE 1.75 MG/DL (0.60-1.10); PRE OP ALT 15 U/L (30-65); PRE OP ANION GAP 9 (8-16); PRE OP AST 17 U/L (10-37); PRE OP BILIRUB, TOTAL 0.7 MG/DL (0.0-1.0); PRE OP GLUCOSE 98 MG/DL (70-104); PRE OP POTASSIUM 4.5 MMOL/L (3.4-5.1); PRE OP SODIUM 141 MMOL/L (135-145); TOTAL CARBON DIOXIDE 28.4 MMOL/L (24-32); TOTAL PROTEIN 7.4 G/DL (6.4-8.2); eGFR 40 ML/MIN
[2022-05-14 14:25] LABS: HEMOGLOBIN A1C 5.8 % (4.5-6.2)
[2022-05-18] VITALS (21 sets, daily range): BP systolic 125–149; BP diastolic 59–89
[~2022-05-18] VITALS: Ht 182.9 cm; Wt 111.5 kg
[2022-05-18] MEDS: potassium cl 20mEq in 1/2 NS 1,000 ML IV SCH ×2 (06:50→22:50)
[~2022-05-18 08:23] MED LIST changes: -AMLO10TA13 PO; +AMLO5TAB PO; -CARV25TA3 PO; +CARV25TA56 PO; +DOCUMENT DATE & TIME OF BETA-BLOCKER PO ONE; +ERGO500056 PO; +FLO0.4C PO; +GABA300C PO; -GABA800T11 PO; +HYDROcodone/acetaminophen 10/325mg tab PO PRN; +HYDROmorphone 1 mg/ml syringe IV PRN; +HYDROmorphone inj. 0.5 MG/0.5 ML DISP.SYRIN IV PRN; +OXYB10TA30 PO; +TRAZ-256 PO; -TRAZ150T78 PO; +acetaminophen 325mg tablet PO ONE; +acetaminophen 325mg tablet PO PRN; +albuterol 2.5 MG/3 ML nebule NEB ONE; +bisacodyl 10mg suppository rectal RC PRN; +ceFAZolin inj. 2,000 MG in dextrose 5%-water 100 ML IV ONE; +celeCOXIB 100mg capsule PO ONE; +diphenhydrAMINE 25mg capsule PO PRN; +famotidine 20mg tablet PO ONE; +gabapentin 300mg capsule PO ONE; +magnesium hydroxide 30ml (MOM) UD suspension PO PRN; +metoclopramide 5 mg/ml inj IV ONE; +naloxone 0.4 mg/ml inj IV PRN; +ondansetron/PF 4mg/2ml inj IV PRN; +oxyCODONE SR 10mg (sust. release) tab -2 tabs (20mg) PO ONE; -tamsulosin capsule PO; +tranexamic acid inj. 1,000 MG in normal saline IV soln 100ML IV ONE; +vancomycin 1,500 MG in NS 300ml IV soln IV ONE
[2022-05-18] MEDS ORDERED: vancomycin 1,000mg inj ONE (09:39)
[2022-05-18] MEDS ORDERED: ROPIVAcaine inj 250 MG, CloNIDine/PF inj 80 MCG, epiNEPHrine inj 0.5 MG in normal salin... IV ONE (09:40)
[2022-05-18] MEDS ORDERED: fentaNYL/PF 50MCG/1 ML 2ML syringe ONE ×2 (09:55→11:16)
[2022-05-18] MEDS ORDERED: MIDAZolam 1 MG/ML 5ML VIAL ONE (09:56)
[2022-05-18] MEDS: ringers solution, lacted 1,000 ML IV SCH ×2 (10:19→17:31)
[2022-05-18] MEDS ORDERED: ondansetron/PF 4mg/2ml inj IV PRN (10:55)
[2022-05-18] MEDS ORDERED: ROPIVAcaine 0.2% (10 MG/5 ML) BOLUS INJECTION ADDCANAL PRN (10:55)
[2022-05-18] MEDS: ROPIVAcaine 0.2%/PF PUMP/bolus 545 ML ADDCANAL SCH (10:55)
[2022-05-18] MEDS ORDERED: meperidine/PF 25mg/ml syringe IV PRN ×3 (10:55)
[2022-05-18] MEDS ORDERED: ringers solution, lacted 1,000 ML IV SCH (10:55)
[2022-05-18] MEDS ORDERED: morphine 4 MG/ML inj SYRINge IV PRN (10:55)
[2022-05-18] MEDS ORDERED: proCHLORperazine 10 MG/2 ml inj IV PRN (10:55)
[2022-05-18] MEDS ORDERED: morphine 2 MG/ML inj. syringe IV PRN (10:55)
--- NOTE | 2022-05-18 11:13 | NUR ---
PT PREPARED FOR SURGERY. PT STATED HE USED THE SPECIAL SOAP TO SHOWER WITH FOR THE PAST 5 DAYS INCLUDING TODAY. NO NASAL OINTMENT WAS PRESCRIBED. PT AND CAREGIVER VIEWED THE INFORMATION PACKAGE ON THE PROCEDURE AND INSTRUCTIONS. PEDAL PULSES ARE MARKED, FAINT D/T LYMPHADEMA ON BOTH LEGS, BILATERAL LEGS ARE PINK WARM AND DRY, SENSATION IS DECREASED IN BOTH LEGS DUE TO NEUROPATHY AND SKIN CONDITION, BOTH LEGS ARE LARGE IN SIZE AND HAVE BUMPY DENSE, FIBROUS, IRREGULAR SKIN. PT INSTRUCTED IN USE OF INCENTIVE SPIROMETRY AND WAS ABLE TO PERFORM RETURN DEMONSTRATION
[2022-05-18] MEDS ORDERED: morphine 4 MG/ML inj SYRINge ONE (11:54)
[2022-05-18] MEDS ORDERED: glycopyrrolate 0.2mg/ml inj ONE (11:57)
[2022-05-18] MEDS ORDERED: diphenhydrAMINE 50 mg/ml inj ONE (11:57)
[2022-05-18] MEDS ORDERED: propofol inj 40 ML IV ONE (11:57)
--- NOTE | 2022-05-18 12:21 | NUR ---
Received from OR via BED IN STABLE CONDITION , accompanied by Anesthesiologist and DISCOTHEQUE DANCER report given by DISCOTHEQUE DANCER AND Anesthesiolgist. Addendum: 05/18/22 at 1243 by Ivonne Morales RN Amended: Links added.
--- NOTE | 2022-05-18 14:11 | NUR ---
PATIENT DISCHARGED FROM PACU IN STABLE CONDITION AFTER REPORT GIVEN TO RN TAKING OVER PATIENTS CARE. PATIENT TRANSFERRED TO ROOM 357B VIA BED WITH RN X2. DERMATOME LEVEL L5. Addendum: 05/18/22 at 1419 by Ivonne Morales RN Amended: Links added.
--- NOTE | 2022-05-18 14:15 | NUR ---
Patient arrived on floor, settled in room call light given. still drowsy.
[2022-05-18] MEDS ORDERED: tranexamic acid inj. 1,400 MG in normal saline 100ml IV soln 86 ML IV ONE (15:15)
[2022-05-18] MEDS: cefazolin/dext.iso 2gm/100ml 100 ML IV SCH (17:37)
--- NOTE | 2022-05-18 19:00 | NUR ---
Problems reprioritized. Patient report given, questions answered & plan of care reviewed with Tracy CALZADA.
[2022-05-18] MEDS: traZODone 150mg tablet PO SCH (20:19)
[2022-05-18] MEDS: oxybutynin 5mg tablet PO SCH (20:19)
[2022-05-18] MEDS: carVEDilol 12.5mg tablet PO SCH (20:19)
[2022-05-18] MEDS: tamsulosin 0.4mg capsule PO SCH (20:19)
[2022-05-18] MEDS: sennosides 8.6mg tablet PO SCH (20:20)
[2022-05-18] MEDS: gabapentin 300mg capsule PO SCH (20:20)
[2022-05-18] MEDS: VANCOMYCIN 1,500MG inj. 1,500 MG in normal saline 500ml IV soln 300 ML IV SCH (20:20)
[2022-05-18] MEDS: HYDROcodone/acetaminophen 10/325mg tab PO PRN (20:22)
--- NOTE | 2022-05-18 22:42 | NUR ---
Pt was bladder scanned had 921ml in bladder. Called Dr Butterfield and he ordered a straight cath for the patient. aware patient had stents placed a couple weeks ago by Dr. Cantrell. Pt tolerated procedure well. Urine output was 1025 in straight cath. Clear straw urine. Addendum: 05/19/22 at 0531 by Tracy Nick RN Dr. Butterfield ordered a lou to be placed if patient had over 400 ml in bladder instead of doing a second straight cath. Pt was bladder scanned and had 518 ml urine in bladder. Lou placed. Patient tolerated well 10 mls saline in balloon. Addendum: 05/19/22 at 0532 by Tracy Nick RN Pt had 500 mls of urine output in lou at time of insertion.
[2022-05-19] MEDS: cefazolin/dext.iso 2gm/100ml 100 ML IV SCH ×2 (00:40→01:39)
[2022-05-19] MEDS: potassium cl 20mEq in 1/2 NS 1,000 ML IV SCH ×4 (01:39→22:44)
[2022-05-19 02:00] VITALS: BP 134/84
[2022-05-19] MEDS: HYDROcodone/acetaminophen 10/325mg tab PO PRN ×3 (02:11→19:30)
[2022-05-19] MEDS ORDERED: LIDOcaine 2% 10ml TOPICAL JELLY (Urojet) TP ONE (05:40)
--- NOTE | 2022-05-19 06:41 | NUR ---
Problems reprioritized. Patient report given, questions answered & plan of care reviewed with ZHENG Negron.
[2022-05-19 06:47] LABS: BASOPHILS % (AUTO) 0.5 % (0-1); EOSINOPHILS # (AUTO) 0.2 X10'3 (0-0.9); EOSINOPHILS % (AUTO) 2.5 % (0-6); HEMATOCRIT 35.6 % (42.0-52.0); HEMOGLOBIN 12.3 g/dl (14.0-17.9); LYMPHOCYTES # (AUTO) 1.5 X10'3 (1.1-4.8); LYMPHOCYTES % (AUTO) 17.7 % (21-51); MEAN CORPUSCULAR HEMOGLOBIN 28.3 PG (27.0-31.0); MEAN CORPUSCULAR HGB CONC 34.4 g/dL (33.0-36.5); MEAN CORPUSCULAR VOLUME 82.2 FL (78-98); MEAN PLATELET VOLUME 7.5 FL (7.4-10.4); MONOCYTES # (AUTO) 0.8 X10'3 (0-0.9); MONOCYTES % (AUTO) 9.7 % (2-12); NEUTROPHILS # (AUTO) 5.8 X10'3 (1.8-7.7); NEUTROPHILS % (AUTO) 69.6 % (42-75); PLATELET COUNT 206 X10'3 (140-440); RED BLOOD COUNT 4.33 X10'6 (4.70-6.10); RED CELL DISTRIBUTION WIDTH 14.6 % (11.5-14.5); WHITE BLOOD COUNT 8.3 X10'3 (4.5-11.0)
--- NOTE | 2022-05-19 07:00 | NUR ---
Patient in room [facility] 357. I have received report from Tracy CALZADA and had the opportunity to ask questions and assume patient care.
[2022-05-19 07:12] VITALS: BP 118/79
[2022-05-19 07:29] LABS: ANION GAP 8 (8-16); CHLORIDE 103 MMOL/L (99-107); POTASSIUM 3.9 MMOL/L (3.5-5.1); SODIUM 137 MMOL/L (135-145); TOTAL CARBON DIOXIDE 25.6 MMOL/L (24-32)
[2022-05-19] MEDS: VANCOMYCIN 1,500MG inj. 1,500 MG in normal saline 500ml IV soln 300 ML IV SCH (07:57)
[2022-05-19] MEDS: carVEDilol 12.5mg tablet PO SCH ×2 (07:58→21:16)
[2022-05-19] MEDS: atorvastatin 20mg tablet PO SCH (07:58)
[2022-05-19] MEDS: losartan 50mg tablet PO SCH (07:58)
[2022-05-19] MEDS: ascorbic acid 500mg tablet PO SCH ×2 (07:59→21:17)
[2022-05-19] MEDS: cloNIDine 0.1 mg tablet PO SCH (07:59)
[2022-05-19] MEDS: amLODIPine 5mg tablet PO SCH (07:59)
[2022-05-19] MEDS: oxybutynin 5mg tablet PO SCH ×2 (07:59→21:16)
[2022-05-19] MEDS: gabapentin 300mg capsule PO SCH ×3 (08:00→21:17)
[2022-05-19] MEDS: multivitamins, therapeutics tablet PO SCH (08:12)
[2022-05-19] MEDS: aspirin 325mg tablet PO SCH (08:30)
[2022-05-19 13:20] VITALS: BP 131/59
--- NOTE | 2022-05-19 14:33 | NUR ---
Joint surgery consult: Pt s/p L knee surgery this admit w/ hx blindness per EMR. Pt seen by RD for verbal high protein diet ed w/ written diet ed/RD contact information placed in pt chart. Pt reports dislikes red meat dietary notified Pt reports no issues chewing/swallowing at this time. RD encouraged pt/family to contact dietitian's office if further nutrition questions/concerns post-op. Addendum: 05/19/22 at [address] Amended: Links added.
[2022-05-19 18:00] VITALS: BP 120/63
--- NOTE | 2022-05-19 18:40 | NUR ---
Problems reprioritized. Patient report given, questions answered & plan of care reviewed with Tracy CALZADA.
--- NOTE | 2022-05-19 20:10 | NUR ---
Pt given two norco 10's and two tablets of 325mg acetaminophen by student and instructor at one time. Dr Butterfield made aware no new orders for this occurrence. Dr Butterfield also made aware that patient had an axillary temp of 100.3 and ordered a UA for this patient.
[2022-05-19 20:58] LABS: CLARITY,URINE SLIGHTLY CLOUDY (Clear); GLUCOSE, URINE NEGATIVE (Neg); KETONES,URINE NEGATIVE (Neg); LEUKOCYTE ESTERASE ,URINE LARGE (Neg); NITRITES, URINE NEGATIVE (Neg); OCCULT BLOOD,URINE LARGE (Neg); PROTEIN,URINE NEGATIVE (Neg); UROBILINOGEN,URINE 0.2 E.U/dL (0.2-1.0)
[2022-05-19] MEDS: sennosides 8.6mg tablet PO SCH (21:00)
[2022-05-19 21:05] LABS: COLOR,URINE STRAW (Yellow); UA COLLECTION TYPE FOLEY CATH
[2022-05-19 21:06] LABS: COARSE GRANULAR CAST 0-3 /LPF (NEGATIVE); FINE GRANULAR CAST 0-3 /LPF (NEGATIVE); MUCUS STRANDS FEW /LPF (Neg)
[2022-05-19 21:08] LABS: RBC,URINE TNTC /HPF (0-2); WBC,URINE TNTC /HPF (0-4)
[2022-05-19 21:09] LABS: AMORPHOUS URATES 1+; BACTERIA,URINE 1+ /HPF (Neg); TRANSITIONAL EPI CELLS,URINE FEW /HPF
[2022-05-19 21:11] LABS: SQUAMOUS EPITHELIAL CELL,UR FEW /LPF (FEW)
[2022-05-19] MEDS: celeCOXIB 100mg capsule PO SCH (21:16)
[2022-05-19] MEDS: traZODone 150mg tablet PO SCH (21:17)
[2022-05-19] MEDS: tamsulosin 0.4mg capsule PO SCH (21:17)
[2022-05-19 22:00] VITALS: BP 132/68
--- NOTE | 2022-05-19 22:52 | NUR ---
Student documentation: I have reviewed interventions, assessments performed and documented by Ruthann NJ.
--- NOTE | 2022-05-19 22:53 | NUR ---
Student Medication Administration: For this medication-pass time frame, all medication were reviewed, dispensed, administered and documented per hospital policy by Ruthann NJ.
[2022-05-20] MEDS: HYDROcodone/acetaminophen 10/325mg tab PO PRN ×3 (05:26→21:55)
[2022-05-20] MEDS: potassium cl 20mEq in 1/2 NS 1,000 ML IV SCH (05:31)
--- NOTE | 2022-05-20 06:20 | NUR ---
Problems reprioritized. Patient report given, questions answered & plan of care reviewed with Holly CALZADA.
[2022-05-20 07:10] VITALS: BP 157/65
[2022-05-20] MEDS: multivitamins, therapeutics tablet PO SCH (07:52)
[2022-05-20] MEDS: celeCOXIB 100mg capsule PO SCH ×2 (07:53→21:53)
[2022-05-20] MEDS: oxybutynin 5mg tablet PO SCH ×2 (07:53→21:54)
[2022-05-20] MEDS: losartan 50mg tablet PO SCH (07:53)
[2022-05-20] MEDS: ascorbic acid 500mg tablet PO SCH ×2 (07:53→21:54)
[2022-05-20] MEDS: carVEDilol 12.5mg tablet PO SCH ×2 (07:53→21:54)
[2022-05-20] MEDS: aspirin 325mg tablet PO SCH (07:54)
[2022-05-20] MEDS: gabapentin 300mg capsule PO SCH ×3 (07:54→21:54)
[2022-05-20] MEDS: amLODIPine 5mg tablet PO SCH (07:54)
[2022-05-20] MEDS: atorvastatin 20mg tablet PO SCH (07:54)
[2022-05-20] MEDS: cloNIDine 0.1 mg tablet PO SCH (07:54)
[2022-05-20] MEDS: ROPIVAcaine 0.2%/PF PUMP/bolus 545 ML ADDCANAL SCH (10:55)
[2022-05-20 12:00] VITALS: BP 164/78
[2022-05-20 18:00] VITALS: BP 91/48
--- NOTE | 2022-05-20 18:31 | NUR ---
Problems reprioritized. Patient report given, questions answered & plan of care reviewed with ZHENG Molina.
[2022-05-20] MEDS: sennosides 8.6mg tablet PO SCH (21:00)
[2022-05-20 21:31] VITALS: BP 136/61
[2022-05-20] MEDS: tamsulosin 0.4mg capsule PO SCH (21:54)
[2022-05-20] MEDS: traZODone 150mg tablet PO SCH (21:54)
[2022-05-20 22:00] VITALS: BP 116/55
[2022-05-21] MEDS: ROPIVAcaine 0.2%/PF PUMP/bolus 545 ML ADDCANAL SCH (04:06)
--- NOTE | 2022-05-21 06:35 | NUR ---
Problems reprioritized. Patient report given, questions answered & plan of care reviewed with ZHENG Barrera.
[2022-05-21] MEDS: HYDROcodone/acetaminophen 10/325mg tab PO PRN ×2 (06:59→11:09)
[2022-05-21 07:00] VITALS: BP 121/59
[2022-05-21] MEDS: atorvastatin 20mg tablet PO SCH (07:04)
[2022-05-21] MEDS: carVEDilol 12.5mg tablet PO SCH (07:04)
[2022-05-21] MEDS: ascorbic acid 500mg tablet PO SCH (07:04)
[2022-05-21] MEDS: oxybutynin 5mg tablet PO SCH (07:04)
[2022-05-21] MEDS: celeCOXIB 100mg capsule PO SCH (07:04)
[2022-05-21] MEDS: gabapentin 300mg capsule PO SCH ×2 (07:05→13:46)
[2022-05-21] MEDS: losartan 50mg tablet PO SCH (07:05)
[2022-05-21] MEDS: aspirin 325mg tablet PO SCH (07:05)
[2022-05-21] MEDS: amLODIPine 5mg tablet PO SCH (07:05)
[2022-05-21] MEDS: multivitamins, therapeutics tablet PO SCH (07:05)
[2022-05-21] MEDS: cloNIDine 0.1 mg tablet PO SCH (10:15)
[2022-05-21 11:00] VITALS: BP 116/60
--- NOTE | 2022-05-21 12:45 | NUR ---
report called to ZHENG love at [facility]. Addendum: 05/21/22 at 1542 by Holly Alexis RN [address] [facility]. IV removed, all belongings taken from room. Yung cath patent and draining, Mavis dressing CDI. onQ set at 12. All questions answered to receiving facility.
--- NOTE | 2022-05-26 15:41 | NUR ---
Case Management DC follow up: Patient transferred to [facility].
== END 2022-05-21 14:40 | DRG 470 ==
LOC: PAS 08:23 → UNDOADMIN 08:24 → SUR 3N 08:24 → UNDODISIN 05-19 11:30
PROVIDERS: ADMIT Orthopaedic Surgery; ATTEND Orthopaedic Surgery
PROC: 3E0T3BZ Introduction of Anesthetic Agent into Peripheral Nerves and Plexi, Percutaneous Approach (ICD-10-PCS; 2022-05-18)
PROC: 3E0T33Z Introduction of Anti-inflammatory into Peripheral Nerves and Plexi, Percutaneous Approach (ICD-10-PCS; 2022-05-18)
PROC: 0SRD069 Replacement of Left Knee Joint with Oxidized Zirconium on Polyethylene Synthetic Substitute, Cemented, Open Approach (ICD-10-PCS; principal; 2022-05-18 10:19)
DX: M17.12 Unilateral primary osteoarthritis, left knee (principal); I13.0 Hypertensive heart and chronic kidney disease with heart failure and stage 1 through stage 4 chronic kidney disease, or unspecified chronic kidney disease; Z20.822 Contact with and (suspected) exposure to COVID-19; E11.22 Type 2 diabetes mellitus with diabetic chronic kidney disease; J44.9 Chronic obstructive pulmonary disease, unspecified; G47.30 Sleep apnea, unspecified; E66.01 Morbid (severe) obesity due to excess calories; I50.9 Heart failure, unspecified; E78.5 Hyperlipidemia, unspecified; N18.2 Chronic kidney disease, stage 2 (mild); N40.1 Benign prostatic hyperplasia with lower urinary tract symptoms; R33.8 Other retention of urine; Z68.33 Body mass index [BMI] 33.0-33.9, adult; Z79.899 Other long term (current) drug therapy
CPT/HCPCS: 36415; 73560; 80051; 80053; 81001; 82948; 83036; 85025; 86885; 86900; 86901; 87081; 87088; 87811; 97116; 97161; 97530; A4215; A4349; A4615; A7000; C1713; C1776; G0378; J0690; J1200; J2175; J2250; J2270; J2704; J2765; J2795; J3010; J3370; J3480; J3490; J7040; J7060; J7120

== ENCOUNTER 2022-08-18 18:45 | Emergency (ER) | payer MEDICARE, MEDICAID ==
[~2022-08-18] VITALS: Ht 180.3 cm; Wt 104.5 kg
[~2022-08-18 18:45] MED LIST changes: +AMLO10TA13 PO; -AMLO5TAB PO; +ATOR40TA71 PO; -ATOR40TA72 PO; +CARV25TA2 PO; -CARV25TA56 PO; -DOCUMENT DATE & TIME OF BETA-BLOCKER PO ONE; -ERGO500056 PO; -FLO0.4C PO; +FURO80TA3 PO; -GABA300C PO; +GABA800T11 PO; -HYDROcodone/acetaminophen 10/325mg tab PO PRN; -HYDROmorphone 1 mg/ml syringe IV PRN; -HYDROmorphone inj. 0.5 MG/0.5 ML DISP.SYRIN IV PRN; -OXYB10TA30 PO; +OXYB10TA4 PO; -TRAZ-256 PO; +TRAZ150T78 PO; +VALS160T2 PO; -VALS160T30 PO; -acetaminophen 325mg tablet PO ONE; -acetaminophen 325mg tablet PO PRN; -albuterol 2.5 MG/3 ML nebule NEB ONE; -bisacodyl 10mg suppository rectal RC PRN; -ceFAZolin inj. 2,000 MG in dextrose 5%-water 100 ML IV ONE; -celeCOXIB 100mg capsule PO ONE; -diphenhydrAMINE 25mg capsule PO PRN; -famotidine 20mg tablet PO ONE; -gabapentin 300mg capsule PO ONE; -magnesium hydroxide 30ml (MOM) UD suspension PO PRN; -metoclopramide 5 mg/ml inj IV ONE; -naloxone 0.4 mg/ml inj IV PRN; -ondansetron/PF 4mg/2ml inj IV PRN; -oxyCODONE SR 10mg (sust. release) tab -2 tabs (20mg) PO ONE; -tranexamic acid inj. 1,000 MG in normal saline IV soln 100ML IV ONE; -vancomycin 1,500 MG in NS 300ml IV soln IV ONE
[2022-08-18 19:12] LABS: BASOPHILS # (AUTO) 0.1 X10'3 (0-0.2); BASOPHILS % (AUTO) 0.8 % (0-1); EOSINOPHILS # (AUTO) 0.3 X10'3 (0-0.9); EOSINOPHILS % (AUTO) 4.2 % (0-6); HEMATOCRIT 37.6 % (42.0-52.0); HEMOGLOBIN 12.7 g/dl (14.0-17.9); LYMPHOCYTES # (AUTO) 3.2 X10'3 (1.1-4.8); LYMPHOCYTES % (AUTO) 40.8 % (21-51); MEAN CORPUSCULAR HEMOGLOBIN 27.5 PG (27.0-31.0); MEAN CORPUSCULAR HGB CONC 33.8 g/dL (33.0-36.5); MEAN CORPUSCULAR VOLUME 81.4 FL (78-98); MEAN PLATELET VOLUME 7.2 FL (7.4-10.4); MONOCYTES # (AUTO) 0.7 X10'3 (0-0.9); MONOCYTES % (AUTO) 9.6 % (2-12); NEUTROPHILS # (AUTO) 3.5 X10'3 (1.8-7.7); NEUTROPHILS % (AUTO) 44.6 % (42-75); PLATELET COUNT 275 X10'3 (140-440); RED BLOOD COUNT 4.62 X10'6 (4.70-6.10); RED CELL DISTRIBUTION WIDTH 16.7 % (11.5-14.5); WHITE BLOOD COUNT 7.8 X10'3 (4.5-11.0)
[2022-08-18 20:00] VITALS: BP 133/78
[2022-08-18] MEDS ORDERED: normal saline 1000ML IV soln IVB ONE (20:00)
[2022-08-18 20:14] LABS: ALANINE AMINOTRANSFERASE 18 U/L (12-78); ALBUMIN 3.5 G/DL (3.4-5.0); ALBUMIN/GLOBULIN RATIO 0.9 (1.1-1.5); ALKALINE PHOSPHATASE 127 IU/L (46-116); ANION GAP 9 (8-16); ASPARTATE AMINO TRANSFERASE 14 U/L (10-37); BILIRUBIN,TOTAL 0.4 MG/DL (0.1-1.0); BLOOD UREA NITROGEN 28 MG/DL (7-18); CALCIUM 8.7 MG/DL (8.5-10.1); CHLORIDE 105 MMOL/L (99-107); CREATININE 2.15 MG/DL (0.60-1.10); GLUCOSE 128 MG/DL (70-104); POTASSIUM 3.7 MMOL/L (3.5-5.1); SODIUM 140 MMOL/L (135-145); TOTAL CARBON DIOXIDE 26.4 MMOL/L (24-32); TOTAL PROTEIN 7.6 G/DL (6.4-8.2); eGFR 32 ML/MIN
== END 2022-08-18 22:58 | disposition home or self-care (01) ==
LOC: ER 18:46
DX: R42 Dizziness and giddiness (principal); G43.909 Migraine, unspecified, not intractable, without status migrainosus; I11.0 Hypertensive heart disease with heart failure; I50.9 Heart failure, unspecified; J44.9 Chronic obstructive pulmonary disease, unspecified; E11.9 Type 2 diabetes mellitus without complications; M19.90 Unspecified osteoarthritis, unspecified site; F12.90 Cannabis use, unspecified, uncomplicated; F15.20 Other stimulant dependence, uncomplicated; Z91.041 Radiographic dye allergy status; Z88.1 Allergy status to other antibiotic agents; Z88.5 Allergy status to narcotic agent; Z91.018 Allergy to other foods; Z56.0 Unemployment, unspecified
CPT/HCPCS: 36415; 71045; 80053; 83880; 84484; 85025; 93005; 99285; J7030; J7040

== ENCOUNTER → 2024-12-28 | Day surgery (SDC) | payer MEDICARE, MEDICAID ==
[2024-12-25 09:36] LABS: BASOPHILS # (AUTO) 0.1 X10'3 (0-0.2); BASOPHILS % (AUTO) 0.9 % (0-1); BILIRUBIN,URINE NEGATIVE (Neg); CLARITY,URINE SLIGHTLY CLOUDY (Clear); COLOR,URINE YELLOW (Yellow); EOSINOPHILS # (AUTO) 0.2 X10'3 (0-0.9); EOSINOPHILS % (AUTO) 2.5 % (0-6); GLUCOSE, URINE NEGATIVE (Neg); KETONES,URINE NEGATIVE (Neg); LEUKOCYTE ESTERASE ,URINE NEGATIVE (Neg); LYMPHOCYTES # (AUTO) 1.9 X10'3 (1.1-4.8); LYMPHOCYTES % (AUTO) 27.6 % (21-51); MEAN CORPUSCULAR HEMOGLOBIN 28.8 PG (27.0-31.0); MEAN CORPUSCULAR HGB CONC 34.1 g/dL (33.0-36.5); MEAN CORPUSCULAR VOLUME 84.6 FL (78-98); MEAN PLATELET VOLUME 7.4 FL (7.4-10.4); MONOCYTES # (AUTO) 0.5 X10'3 (0-0.9); MONOCYTES % (AUTO) 7.8 % (2-12); NEUTROPHILS # (AUTO) 4.3 X10'3 (1.8-7.7); NEUTROPHILS % (AUTO) 61.2 % (42-75); NITRITES, URINE NEGATIVE (Neg); OCCULT BLOOD,URINE NEGATIVE (Neg); PH,URINE 6.5 (4.8-8.0); PRE OP HEMATOCRIT 41.7 % (42.0-52.0); PRE OP HEMOGLOBIN 14.2 g/dL (14.0-17.9); PRE OP PLATELET COUNT 212 X10'3 (140-440); PRE OP WHITE BLOOD COUNT 7.1 10'3 (4.8-10.8); PROTEIN,URINE 30 mg/dl (Neg); RED BLOOD COUNT 4.92 X10'6 (4.70-6.10); RED CELL DISTRIBUTION WIDTH 14.2 % (11.5-14.5); UROBILINOGEN,URINE 0.2 E.U/dL (0.2-1.0)
[2024-12-25 09:42] LABS: UA COLLECTION TYPE CLN CATCH MIDSTREAM
[2024-12-25 09:43] LABS: HYALINE CASTS 0-3 /LPF (NEGATIVE); SQUAMOUS EPITHELIAL CELL,UR FEW /LPF (FEW)
[2024-12-25 09:44] LABS: BACTERIA,URINE FEW /HPF (Neg); TRANSITIONAL EPI CELLS,URINE FEW /HPF; WBC,URINE 0-4 /HPF (0-4)
[2024-12-25 09:54] LABS: ALBUMIN 3.5 G/DL (3.4-5.0); ALBUMIN/GLOBULIN RATIO 0.9 (1.1-1.5); ALKALINE PHOSPHATASE 139 IU/L (46-116); BLOOD UREA NITROGEN 25 MG/DL (7-18); BUN/CREATININE RATIO 14.6 (10.0-20.0); CALCIUM 8.6 MG/DL (8.5-10.1); CHLORIDE 107 MMOL/L (99-107); CREATININE 1.71 MG/DL (0.60-1.10); PRE OP ALT 17 U/L (30-65); PRE OP ANION GAP 6 (8-16); PRE OP AST 13 U/L (10-37); PRE OP BILIRUB, TOTAL 0.7 MG/DL (0.0-1.0); PRE OP GLUCOSE 102 MG/DL (70-104); PRE OP POTASSIUM 3.9 MMOL/L (3.4-5.1); PRE OP SODIUM 144 MMOL/L (135-145); TOTAL CARBON DIOXIDE 30.6 MMOL/L (24-32); TOTAL PROTEIN 7.5 G/DL (6.4-8.2); eGFR 41 ML/MIN
[~2024-12-28] VITALS: Ht 177.8 cm; Wt 108.9 kg
[~2024-12-28] MED LIST changes: +DOCUMENT DATE & TIME OF BETA-BLOCKER PO ONE; +GABA300C PO; -GABA800T11 PO; +IBUPROFEN PO; -OXYB10TA4 PO; +SUMA50TA17 PO; -VALS160T2 PO; +bacitracin 15gm ointment TP ONE; +ceFAZolin 2gm/dext,iso 50mL 50 ML IV ONE; +famotidine 20mg tablet PO ONE; +ringers solution, lacted 1,000 ML IV SCH
== END | disposition home or self-care (01) ==
LOC: PAS 05:29
PROVIDERS: ATTEND Podiatrist Foot & Ankle Surgery
DX: M14.671 Charcot's joint, right ankle and foot (principal); Z53.8 Procedure and treatment not carried out for other reasons; M79.671 Pain in right foot; M77.30 Calcaneal spur, unspecified foot; E11.42 Type 2 diabetes mellitus with diabetic polyneuropathy; E11.51 Type 2 diabetes mellitus with diabetic peripheral angiopathy without gangrene; M17.12 Unilateral primary osteoarthritis, left knee; Z98.890 Other specified postprocedural states
CPT/HCPCS: 36415; 80053; 81001; 85025; J7120

== ENCOUNTER 2025-01-10 12:14 | Day surgery (SDC) | payer MEDICARE, MEDICAID ==
[2025-01-10] VITALS (8 sets, daily range): BP systolic 113–163; BP diastolic 69–94; PULSE 63–73; RESP 10–18; TEMP 97.9; O2SAT 94–97
[~2025-01-10] VITALS: Ht 182.9 cm; Wt 109.5 kg
[2025-01-10] MEDS: ceFAZolin 2gm/dext,iso 50mL 50 ML IV ONE (05:30)
[2025-01-10] MEDS: famotidine 20mg tablet PO ONE (05:30)
[~2025-01-10 12:14] MED LIST changes: +ASPI-1071 PO; -bacitracin 15gm ointment TP ONE; -ceFAZolin 2gm/dext,iso 50mL 50 ML IV ONE; -famotidine 20mg tablet PO ONE; -ringers solution, lacted 1,000 ML IV SCH
[2025-01-10] MEDS: VANCOMYCIN/H2O 1.5g/300mL PB 300 ML IV ONE (12:42)
[2025-01-10] MEDS: ringers solution, lacted 1,000 ML IV SCH (12:42)
[2025-01-10] MEDS ORDERED: bacitracin 15gm ointment TP ONE (13:52)
[2025-01-10] MEDS ORDERED: BUPIVAcaine 2.5mg/ml inj 50ml vial (contains preservative) ONE (13:52)
[2025-01-10] MEDS ORDERED: fentaNYL /PF 50mcg/ml 5ml ampule ONE (14:31)
[2025-01-10] MEDS ORDERED: ROPIVAcaine 0.5% (5mg/ml) 30ml vial ONE (14:32)
[2025-01-10] MEDS ORDERED: LIDOcaine 2% (20mg/ml) 5ml vial ONE (14:32)
[2025-01-10] MEDS ORDERED: dexamethasone sod phosphate 4mg/ml inj. ONE (14:32)
[2025-01-10] MEDS ORDERED: acetaminophen 1,000mg/100ml IV 100 ML IV ONE (14:32)
[2025-01-10] MEDS ORDERED: propofol inj 20 ML IV ONE (14:32)
[2025-01-10] MEDS ORDERED: ondansetron/PF 4mg/2ml inj ONE (14:32)
[2025-01-10] MEDS ORDERED: labetalol 20mg/4ml (5mg/ml) syringe IV PRN (14:40)
[2025-01-10] MEDS ORDERED: hydrALAZINE 20mg/ml inj. IV PRN (14:40)
[2025-01-10] MEDS ORDERED: fentaNYL/PF 50MCG/1 ML 2ML syringe IV PRN ×2 (14:40)
[2025-01-10] MEDS ORDERED: morphine 4 MG/ML inj SYRINge IV PRN (14:40)
[2025-01-10] MEDS ORDERED: morphine 2 MG/ML inj. syringe IV PRN (14:40)
[2025-01-10] MEDS ORDERED: ondansetron/PF 4mg/2ml inj IV PRN (14:40)
[2025-01-10] MEDS ORDERED: ringers solution, lacted 1,000 ML IV SCH (14:40)
[2025-01-10] MEDS ORDERED: sevoflurane 250ml liquid IH ONE (15:32)
[2025-01-10] MEDS ORDERED: hydrALAZINE 20mg/ml inj. ONE (15:34)
--- NOTE | 2025-01-10 16:01 | ANESTHESIA RECORDS ---
Nerve Block Providers to CC CC: TIA TA DPM ~ Diagnosis: Nerve Block requested by: TIA TA DPM Neuraxial/Peripheral Nerve Block requested for Post-operative analgesia by Physician above DIAGNOSIS: Post-operative pain. (Body Area) Shoulder: [ ] Arm: [ ] Hand: [ ] Hip: [ ] Knee: [ ] Ankle: [ ] Foot: [ RIGHT ] Leg: [ ] Abdomen: [ ] Other: [ ] Post-operative pain expected to be/is inadequately managed by oral or IV medicines. Regional anesthetic expected to facilitate rehabilitation and/or discharge from facility. Other:[ _] Procedure Performed: Ankle Posterior tibial: Right Ankle Superficial Peroneal: Right Ankle Deep Peroneal: Right Ankle Sural & Sapenous Nerve: Right Time out Done?: Yes Time of Time out: 15:05 Procedure Details: PROCEDURE DETAILS: Risks, benefits and alternatives explained Informed consent obtained, and patient wishes to proceed Conscious sedation with indicated monitors Patient positioned, pertinent anatomy defined, sterile technique used Needle used: [ ] 3 1/8 inch Stimuplex Ultra 22ga [ ] 4 inch Stimuplex Ultra 20ga [ ] 6 inch Stimuplex Ultra 20ga [ ] 6 inch, Quikbloc over the needle catheter set 20ga [ ] 4 inch Quikbloc over the needle catheter set 20ga [X ]Other: [___22g Needle ] LXoss of twitch @ [ ]mA [X ] Single Injection [ ] Catheter Ultrasound Guidance Used: [ ] Yes [X ] No Attempts:[___1, ] Medicines injected: [ ]Clonidine Amt:[ ] [ X ]Dexamethasone Amt:[ 2mg ] [ X ]Ropivacaine Amt:[__0.5% 30 c.c ] [ ]Bupivacaine Amt:[ ] [ ]Lidocaine Amt:[ ] [ ]Exparel 1.33%:[ ] [ ]Epinephrine Amt[ ] [ ]Other: [ ] Intermittent aspiration during local anesthetic administration No symptoms of intraneural or intravenous injection Patient tolerated procedure well Comments Right ankle bone ,ligmaent land ramey and all 5 nerve bundle positions assesed. Needle is near all the bundles and locla aneathetic is distributed.. KAKARLAPUDI,DIMAS R MD Jan 10, 2025 16:01
[2025-01-10] MEDS: bacitracin 15gm ointment TP ONE (17:54)
[2025-01-10] MEDS: HYDROcodone/acetaminophen 10/325mg tab PO ONE (18:46)
--- NOTE | 2025-01-11 05:23 | RADIOLOGY REPORT ---
C-ARM FLUOROSCOPY: PROCEDURE: Right foot ORIF FLUOROSCOPY TIME: 271.3 sec DAP: 12.16 mgy FINDINGS: Spot intraoperative C arm radiographs demonstrating right foot ORIF. IMPRESSION: Please refer to surgical report for detailed findings.
== END 2025-01-10 19:13 | disposition home or self-care (01) ==
LOC: PAS 12:14
PROVIDERS: ATTEND Podiatrist Foot & Ankle Surgery
DX: M20.41 Other hammer toe(s) (acquired), right foot (principal); M19.071 Primary osteoarthritis, right ankle and foot; M24.571 Contracture, right ankle; M17.12 Unilateral primary osteoarthritis, left knee; E11.42 Type 2 diabetes mellitus with diabetic polyneuropathy; E11.51 Type 2 diabetes mellitus with diabetic peripheral angiopathy without gangrene; F41.8 Other specified anxiety disorders; F17.210 Nicotine dependence, cigarettes, uncomplicated; Z98.890 Other specified postprocedural states; E11.22 Type 2 diabetes mellitus with diabetic chronic kidney disease; N18.9 Chronic kidney disease, unspecified; I13.0 Hypertensive heart and chronic kidney disease with heart failure and stage 1 through stage 4 chronic kidney disease, or unspecified chronic kidney disease; I50.9 Heart failure, unspecified; J44.9 Chronic obstructive pulmonary disease, unspecified; G47.33 Obstructive sleep apnea (adult) (pediatric); M14.671 Charcot's joint, right ankle and foot; Z88.1 Allergy status to other antibiotic agents; Z88.8 Allergy status to other drugs, medicaments and biological substances; G89.18 Other acute postprocedural pain; Z87.442 Personal history of urinary calculi; Z79.899 Other long term (current) drug therapy; Z96.653 Presence of artificial knee joint, bilateral
CPT/HCPCS: 28270; 28285; 28730; 64450; 73620; 82948; A4215; A4618; A6223; A6402; A6449; A7000; C1713; J0131; J0360; J1100; J2003; J2405; J2704; J2795; J3010; J3372; J3490; J7030; J7120; Z7506; Z7508; Z7512; Z7610; 76000